=== PATIENT | male | born 1950 | race Caucasian/White ===

== ENCOUNTER 2017-09-23 05:35 | Outpatient (CLI) | payer MEDICARE ==
[~2017-09-23] VITALS: Ht 170.2 cm; Wt 56.7 kg
[~2017-09-23 05:35] MED LIST: ASPI1TAB PO; CIPR500T78 PO; HYDR-3454 PO; METR500T PO; POLY17PO23 PO; TRAM-21 PO
== END 2017-09-23 11:56 ==
LOC: PREOP 05:35
PROVIDERS: ATTEND Surgery
DX: Z01.818 Encounter for other preprocedural examination (principal); K40.90 Unilateral inguinal hernia, without obstruction or gangrene, not specified as recurrent

== ENCOUNTER 2017-09-30 06:58 | Day surgery (SDC) | payer MEDICARE ==
[~2017-09-30] VITALS: Ht 170.2 cm; Wt 56.7 kg
[2017-09-30 07:10] VITALS: BP 147/82
[2017-09-30] MEDS ORDERED: ceFAZolin 1 GM/NS 50 ML IVPB IV ONE ×2 (07:15)
[2017-09-30] MEDS ORDERED: BUP/EPI 0.5% 1:200,000 (SENSORCAINE) 30 ML VIAL ONE (07:18)
[2017-09-30] MEDS: LACTATED RINGERS 1,000 ML IV PRN ×2 (07:25→09:22)
[2017-09-30 07:33] LABS: BASOPHILS # (AUTO) 0.1 10^3/uL (0.0-0.1); BASOPHILS % (AUTO) 1 % (0-10); EOSINOPHILS # (AUTO) 0.1 10^3/uL (0.0-0.3); EOSINOPHILS % (AUTO) 1 % (0-10); HEMATOCRIT 39 % (40-54); HEMOGLOBIN 13.9 G/DL (13.3-17.7); LYMPHOCYTES # (AUTO) 1.5 X 10^3 (1.0-4.0); LYMPHOCYTES % (AUTO) 17 % (12-44); MEAN CORPUSCULAR HEMOGLOBIN 33 PG (25-34); MEAN CORPUSCULAR HGB CONC 35 G/DL (32-36); MEAN CORPUSCULAR VOLUME 93 FL (80-99); MEAN PLATELET VOLUME 9.4 FL (7.4-10.4); MONOCYTES # (AUTO) 0.8 X 10^3 (0.0-1.0); MONOCYTES % (AUTO) 9 % (0-12); NEUTROPHILS # (AUTO) 6.4 X 10^3 (1.8-7.8); NEUTROPHILS % (AUTO) 73 % (42-75); PLATELET COUNT 262 10^3/uL (130-400); RED BLOOD COUNT 4.22 10^6/uL (4.35-5.85); RED CELL DISTRIBUTION WIDTH 13.4 % (10.0-14.5); WHITE BLOOD COUNT 8.8 10^3/uL (4.3-11.0)
[2017-09-30] MEDS ORDERED: ceFAZolin INJECTION 1,000 MG in NS (IVPB) 50 ML IV ONE (07:45)
[2017-09-30] MEDS ORDERED: ONDANSETRON 4 MG/2 ML (SDV) Z0FRAN IVP PRN ×2 (08:00→10:15)
[2017-09-30] MEDS ORDERED: ACETAMINOPHEN 325 MG TABLET/CAPLET (TYLENOL) PO PRN (08:00)
[2017-09-30] MEDS ORDERED: HYDROcodone/APAP 5 MG/325 MG (LORTAB) TAB PO ONE (08:00)
[2017-09-30] MEDS ORDERED: morphine INJ 10 MG/ML 1ML (SYR OR VIAL) IVP PRN (08:00)
--- NOTE | 2017-09-30 08:00 | Progress Note-Pre Operative ---
Pre-Operative Progress Note H&P Reviewed The H&P was reviewed, patient examined and no changes noted. Date Seen by Provider: Sep 30, 2017 Time Seen by Provider: 07:45 Date H&P Reviewed: Sep 30, 2017 Time H&P Reviewed: 07:50 Pre-Operative Diagnosis: Symptomatic right inguinal hernia ANDRE HART APRN Sep 30, 2017 8:00 am
[2017-09-30] MEDS ORDERED: LIDOCAINE PF 2% 5 ML (XYLOCAINE) VIAL ONE (08:25)
[2017-09-30] MEDS ORDERED: proPOfol 200 MG/20 ML (DIPRIVAN) VIAL IV ONE (08:25)
[2017-09-30] MEDS ORDERED: fentaNYL INJECTION 100 MCG/2 ML AMP ONE (08:25)
[2017-09-30] MEDS ORDERED: GLYCOPYRROLATE 0.2 MG/ML (ROBINUL) 2 ML VIAL ONE (08:25)
[2017-09-30] MEDS ORDERED: MIDAZOLAM 2 MG/2 ML (VERSED) VIAL ONE (08:25)
[2017-09-30] MEDS ORDERED: NEOSTIGMINE (BLOXIVERZ ) 1 MG/1ML 10 ML VIAL ONE (08:25)
[2017-09-30] MEDS ORDERED: ONDANSETRON 4 MG/2 ML (SDV) Z0FRAN ONE (08:25)
[2017-09-30] MEDS ORDERED: SEVOFLURANE (ULTANE) 15 ML INHAL SOLN ONE (08:25)
[2017-09-30] MEDS ORDERED: DEXAMETHASONE 10 MG/ML (DECADRON) 1 ML VIAL ONE (08:25)
[2017-09-30] MEDS ORDERED: ROCURONIUM 50 MG/5 ML (ZEMURON) VIAL IV ONE (08:25)
[2017-09-30] MEDS ORDERED: PHENYLEPHRINE 100 MCG/ML 10 ML (ANESTHESIA) SYR ONE (09:23)
--- NOTE | 2017-09-30 09:58 | Progress Note-Post Operative ---
Post-Operative Progess Note Surgeon (s)/Supervisor Mirror Fabrication (s) Surgeon MAICOL DAIGLE MD Supervisor [employer]: none Pre-Operative Diagnosis Symptomatic right inguinal hernia Post-Operative Diagnosis symptomatic right direct inguinal hernia. Procedure & Operative Findings Date of Procedure 09/30/17 Procedure Performed/Findings laparoscopic right inguinal hernia repair with mesh. Anesthesia Type GET Estimated Blood Loss Estimated blood loss (mL): minimal Specimens/Packing Specimens Removed none MAICOL DAIGLE MD Sep 30, 2017 9:58 am
[2017-09-30] MEDS ORDERED: HYDR-34 PO (09:59)
--- NOTE | 2017-09-30 10:00 | Discharge Inst-Surgical ---
D/C Lap Instructions-OXANA New, Converted, or Re-Newed RX: RX on Chart Follow Up Appt in 2 weeks Activity as tolerated No driving for 24 hours No driving while on pain medications Incentive Spirometry use every 2 hours while awake Regular Diet Symptoms to Report: Fever over 101 degree F, Nausea/Vomiting Infection Signs and Symptoms to report: Increased redness, Foul odor of wound, Increased drainage Bathing instructions: May shower Operative Area Clean/Dry; Keep incision clean/dry If any problems/questions: Contact your physician or go to Emergency Room MAICOL DAIGLE MD Sep 30, 2017 10:00 am
[2017-09-30] MEDS ORDERED: HYDROmorphone (DILAUDID) 2 MG/ML VIAL IVP PRN (10:15)
[2017-09-30] MEDS: morphine INJ 10 MG/ML 1ML (SYR OR VIAL) IVP PRN ×3 (10:20→10:30)
[2017-09-30 11:00] VITALS: BP 131/74
[2017-09-30 11:30] VITALS: BP 134/74
[2017-09-30 12:00] VITALS: BP 131/72
[2017-09-30 12:25] VITALS: BP 131/72
--- NOTE | 2017-09-30 12:58 | OPERATIVE REPORT ---
DATE OF SERVICE: 09/30/2017 ATTENDING PRIMARY CARE PHYSICIAN: Herbert Jean MD. PREOPERATIVE DIAGNOSIS: Symptomatic reducible right inguinal hernia. POSTOPERATIVE DIAGNOSIS: Symptomatic reducible direct inguinal hernia. PROCEDURE: Laparoscopic right inguinal hernia repair with mesh. SURGEON: Maicol Daigle MD. NURSE OBGYN: Oswaldo Yanez APRN. ANESTHESIA: General endotracheal. ESTIMATED BLOOD LOSS: Minimal. FINDINGS: Reducible direct right inguinal hernia with nothing within the hernia sac. There was no left inguinal hernia component. DISPOSITION: The patient tolerated the procedure well. INDICATIONS: The patient is a 67-year-old male who reports that he was doing an activity and felt a bulge in the right inguinal region. Over time, this grew larger in size and became more painful. He was seen in the office and upon examination, he was found to have a right inguinal hernia, which was reducible; however, tender to palpation. DESCRIPTION OF PROCEDURE: The patient was brought to the operating room, laid supine on the table. After adequate IV pain and sedative medications and general endotracheal intubation, the abdomen was prepped and draped in standard surgical fashion. A 0.5% Marcaine with epinephrine was then used to anesthetize the overlying skin in the infraumbilical rim and a small transverse skin incision made using a 15 blade. A towel clamp was then used to retract the abdominal wall anteriorly and a Veress needle inserted with a low opening pressure of 0 mmHg and the abdomen was insufflated to 15 mmHg pressure. The Veress needle removed. A 10 mm Xcel trocar placed followed by a 10 mm 45-degree angle laparoscope visualizing the peritoneal cavity. A 4-quadrant abdominal exploration was performed. Right direct inguinal hernia was identified with nothing within the hernia sac. There was no left inguinal hernia component. It was visualized that the colon, small bowel and omentum were normal. Under direct visualization, we then proceeded to place bilateral 5 mm ports after the skin and peritoneal lining were anesthetized, a transverse skin incision made using a 15 blade. The patient was then placed in Trendelenburg position. The peritoneal lining was then opened, starting laterally towards the conjoint tendon and inguinal ligament. We then proceeded medially identifying Ty's ligament. We then proceeded with inferior dissection including the hernia sac using blunt dissection as well as Sonicision with visualization of good hemostasis. The cord and its contents were identified and spared throughout the process. A medium-sized Bard 3DMax polypropylene mesh was then placed through the 10 mm port site. The mesh was then tacked to Ty's ligament medially and to the conjoint tendon and inguinal ligament laterally. The peritoneal lining was then placed back was then placed over the mesh and a few tacks placed to hold this in place. Good hemostasis was observed. The 10 mm port site fascia and peritoneum were then closed under direct visualization using a León-Zahira device and an 0 Vicryl suture. The abdomen was desufflated and remaining ports removed. All skin incisions were closed using 4-0 Monocryl running subcuticular sutures. Wounds were then cleaned and covered with Dermabond. The patient tolerated the procedure well. We will start IV normal pain medications as well as a clear liquid diet. Once he is tolerating clears and has good pain control with oral pain medications and ambulating well, we will discharge him home. He is instructed to do no heavy lifting or exertion for the next 6 weeks. Job ID: [id number] DocumentID: [id number] Dictated Date: 09/30/2017 10:07:06 Mandolin Repairer Date: 09/30/2017 12:57:49 Dictated By: MAICOL DAIGLE MD
== END 2017-09-30 12:10 | disposition home or self-care (01) ==
LOC: SDC 06:58
PROVIDERS: ATTEND Surgery
DX: K40.90 Unilateral inguinal hernia, without obstruction or gangrene, not specified as recurrent (principal); F17.210 Nicotine dependence, cigarettes, uncomplicated
CPT/HCPCS: 36415; 85025; 87081; 94664

== ENCOUNTER → 2018-06-08 | Outpatient (CLI) | payer MEDICARE ==
[~2018-06-08] MED LIST changes: +HYDR-34 PO; +IOHEXOL 350 MG/ML 100 ML (OMNIPAQUE 350) VIAL IV ONE; +NS 250 ML (IVPB) BAG IV ONE
--- NOTE | 2018-06-08 09:36 | Diagnostic Imaging Report ---
PROCEDURE: CT abdomen and pelvis with contrast. TECHNIQUE: Multiple contiguous axial images were obtained through the abdomen and pelvis after administration of intravenous contrast. INDICATION: Severe abdominal pain with emesis and constipation. COMPARISON: 04/27/2014. FINDINGS: The calcified granuloma is stable in the right lung base as is the small enhancing focus within the dome of the right lobe of the liver. Otherwise, there is mild low-density throughout the liver indicating steatosis. The gallbladder is surgically absent. No pancreatic or splenic lesion is identified apart from calcified granulomas. Note is made of dense atherosclerotic calcification involving the origins of the celiac trunk and superior mesenteric artery with apparent high-grade stenosis at the origin of the celiac trunk. There is opacification of celiac branch vessels which could be related to collateral flow in part. There is also atherosclerotic calcification at the origin of the renal arteries with normal-appearing renal perfusion. No free fluid is seen within the abdomen or pelvis. The partially opacified urinary bladder is unremarkable. There is fluid distention of small bowel loops in the lower abdomen and pelvis; however, no hernia or obstruction is identified. There is no evidence of focal inflammation or organized fluid collection. The subcutaneous nodule in the right pelvic region is unchanged. IMPRESSION: Overall, the findings are similar when compared to the previous study. 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 Contrast flow into the remainder of the celiac branches may be through the stenosis or related to collateral flow. Otherwise, no acute abnormality is identified. Dictated by: Dictated on workstation # [id number]
== END ==
LOC: RAD 08:38
PROVIDERS: ATTEND Family Medicine
DX: I77.4 Celiac artery compression syndrome (principal); K59.00 Constipation, unspecified
CPT/HCPCS: 74177

== ENCOUNTER 2018-12-28 06:30 | Outpatient (CLI) | payer MEDICARE ==
[~2018-12-28] VITALS: Ht 170.2 cm; Wt 56.7 kg
[~2018-12-28 06:30] MED LIST changes: -IOHEXOL 350 MG/ML 100 ML (OMNIPAQUE 350) VIAL IV ONE; -NS 250 ML (IVPB) BAG IV ONE
[2018-12-28] MEDS ORDERED: ASPI-992 PO (12:40)
== END 2018-12-28 12:43 | disposition home or self-care (01) ==
LOC: PREOP 06:30
PROVIDERS: ATTEND Surgery
DX: Z01.818 Encounter for other preprocedural examination (principal)

== ENCOUNTER 2019-01-04 11:23 | Day surgery (SDC) | payer MEDICARE ==
[~2019-01-04] VITALS: Ht 170.2 cm; Wt 56.7 kg
[~2019-01-04 11:23] MED LIST changes: +ASPI-992 PO
[2019-01-04] MEDS ORDERED: NS IV 500 ML 500 ML IV PRN (11:35)
[2019-01-04] MEDS ORDERED: NS IV 500 ML 500 ML ONE (11:35)
--- OUTSIDE RECORDS SUMMARY | 2019-01-04 11:35 | XMS REPORT | Continuity of Care Document ---
Author Organization Unknown Address Unknown Allergies Active Description Code Type Severity Reaction Onset Reported/Identified Relationship to Patient Clinical Status Yes NO KNOWN DRUG ALLERGIES UNKNOWN NO KNOWN DRUG ALLERG Yes SEAFOOD MODERATE DERMATOLOGICAL - CHRISTY Yes No Known Drug Allergies [id number] Drug Allergy Unknown N/A 04/27/2014 Yes peanut [id number] Drug Allergy Unknown N/A 12/28/2018 Yes shellfish derived [id number] Drug Allergy Unknown N/A 12/28/2018 Medications There is no data. Problems Date Dx Coded Attending Type Code Diagnosis Diagnosed By 07/26/2014 BRYCE FAUKLNER, EMELIA Hager Ot 293.0 08/09/2014 NEHAL FAULKNER, THERESE Waldron Ot 455.0 INT HEMORRHOID W/O COMPL 08/09/2014 NEHAL FAULKNER, THERESE Waldron Ot 455.3 EXT HEMORRHOID W/O COMPL 08/09/2014 NEHAL FAULKNER, THERESE Waldron Ot 531.70 CHR STOMACH ULCER NOS 08/09/2014 NEHAL FAULKNER, THERESE Waldron Ot 535.50 UNSP GASTRITIS GASTRODUODENITIS W/O ME 08/09/2014 NEHAL FAULKNER, THERESE Waldron Ot 553.3 DIAPHRAGMATIC HERNIA 08/09/2014 NEHAL FAULKNER, THERESE Waldron Ot 562.10 DIVERTICULOSIS COLON (W/O MENT OF HEMORR 08/13/2014 NEHAL FAULKNER, THERESE Waldron Ot 575.11 CHRONIC CHOLECYSTITIS 08/13/2014 NEHAL FAULKNER, THERESE Waldron Ot 575.8 08/30/2014 NEHAL FAULKNER, THERESE Waldron Ot 575.8 08/30/2014 NEHAL FAULKNER, THERESE Waldron Ot V72.63 08/30/2014 NEHAL FAULKNER, THERESE Waldron Ot V74.8 02/16/2015 NEHAL FAULKNER, THERESE Waldron Ot 575.8 02/16/2015 NEHAL FAULKNER, THERESE Waldron Ot V72.63 02/16/2015 NEHAL FAULKNER, THERESE Waldron Ot V74.8 02/14/2016 NEHAL FAULKNER, THERESE Waldron Ot V72.84 EXAM PRE-OPERATIVE NOS 02/14/2016 NEHAL FAULKNER, THERESE Waldron Ot 575.8 DIS OF GALLBLADDER NEC 02/14/2016 NEHAL FAULKNER, THERESE Waldron Ot V72.63 PRE-PROCEDURAL LABORATORY EXAMINATION 02/14/2016 NEHAL FAULKNER, THERESE Waldron Ot V74.8 SCREEN-BACTERIAL DIS NEC 02/17/2016 BRYCE FAULKNER, EMELIA D Ot M26.03 MANDIBULAR HYPERPLASIA 02/18/2016 BRYCE FAULKNER, EMELIA D Ot M26.03 MANDIBULAR HYPERPLASIA 02/20/2016 BRYCE FAULKNER, EMELIA D Ot M26.03 MANDIBULAR HYPERPLASIA 03/05/2016 BRYCE FAULKNER, EMELIA D Ot M26.03 MANDIBULAR HYPERPLASIA 03/12/2016 BRYCE FAULKNER, EMELIA D Ot M26.03 MANDIBULAR HYPERPLASIA 09/23/2017 OXANA FAULKNER, MAICOL Ot K40.90 UNIL INGUINAL HERNIA, W/O OBST OR GANGR, 09/23/2017 OXANA FAULKNER, MAICOL Ot Z01.818 ENCOUNTER FOR OTHER PREPROCEDURAL EXAMIN 09/24/2017 MAICOL DAIGLE MD Ot K40.90 UNIL INGUINAL HERNIA, W/O OBST OR GANGR, 09/24/2017 OXANA FAULKNER, MAICOL Ot Z01.818 ENCOUNTER FOR OTHER PREPROCEDURAL EXAMIN 09/30/2017 NEHAL FAULKNER, THERESE Waldron Ot V72.84 EXAM PRE-OPERATIVE NOS 09/30/2017 NEHAL FAULKNER, THERESE Waldron Ot 575.8 DIS OF GALLBLADDER NEC 09/30/2017 NEHAL FAULKNER, THERESE Waldron Ot V72.63 PRE-PROCEDURAL LABORATORY EXAMINATION 09/30/2017 NEHAL FAULKNER, THERESE Waldron Ot V74.8 SCREEN-BACTERIAL DIS NEC 09/30/2017 BRYCE FAULKNER, EMELIA Hager Ot M26.03 MANDIBULAR HYPERPLASIA 09/30/2017 BRYCE FAULKNER, EMELIA Hager Ot M26.03 MANDIBULAR HYPERPLASIA 09/30/2017 OXANA FAULKNRE, MAICOL Ot F17.210 NICOTINE DEPENDENCE, CIGARETTES, UNCOMPL 09/30/2017 MAICOL DAIGLE MD Ot K40.90 UNIL INGUINAL HERNIA, W/O OBST OR GANGR, 10/01/2017 MAICOL DAIGLE MD Ot F17.210 NICOTINE DEPENDENCE, CIGARETTES, UNCOMPL 10/01/2017 MAICOL DAIGLE MD Ot K40.90 UNIL INGUINAL HERNIA, W/O OBST OR GANGR, 10/01/2017 MAICOL DAIGLE MD Ot F17.210 NICOTINE DEPENDENCE, CIGARETTES, UNCOMPL 10/01/2017 MAICOL DAIGLE MD, Ot K40.90 UNIL INGUINAL HERNIA, W/O OBST OR GANGR, 06/08/2018 THERESE CALVERT MD Ot V72.84 EXAM PRE-OPERATIVE NOS 06/08/2018 NEHAL FAULKNER, THERESE Waldron Ot 575.8 DIS OF GALLBLADDER NEC 06/08/2018 THERESE CALVERT MD Ot V72.63 PRE-PROCEDURAL LABORATORY EXAMINATION 06/08/2018 THERESE CALVERT MD Ot V74.8 SCREEN-BACTERIAL DIS NEC 06/08/2018 BRYCE FAULKNER, EMELIA Hager Ot M26.03 MANDIBULAR HYPERPLASIA 06/08/2018 EMELIA WU MD Ot M26.03 MANDIBULAR HYPERPLASIA 06/16/2018 MEÑO HOBBS MD Ot 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 Results Test Result Range Methicillin resistant Staphylococcus aureus (MRSA) screening culture - 07:15 Methicillin resistant Staphylococcus aureus (MRSA) screening culture NEG NRG Complete blood count (CBC) with automated white blood cell (WBC) differential - 09/30/17 07:25 Blood leukocytes automated count (number/volume) 8.8 10*3/uL 4.3-11.0 Blood erythrocytes automated count (number/volume) 4.22 10*6/uL 4.35-5.85 Venous blood hemoglobin measurement (mass/volume) 13.9 g/dL 13.3-17.7 Blood hematocrit (volume fraction) 39 % 40-54 Automated erythrocyte mean corpuscular volume 93 [foz_us] 80-99 Automated erythrocyte mean corpuscular hemoglobin (mass per erythrocyte) 33 pg 25-34 Automated erythrocyte mean corpuscular hemoglobin concentration measurement ( mass/volume) 35 g/dL 32-36 Automated erythrocyte distribution width ratio 13.4 % 10.0-14.5 Automated blood platelet count (count/volume) 262 10*3/uL 130-400 Automated blood platelet mean volume measurement 9.4 [foz_us] 7.4-10.4 Automated blood neutrophils/100 leukocytes 73 % 42-75 Automated blood lymphocytes/100 leukocytes 17 % 12-44 Blood monocytes/100 leukocytes 9 % 0-12 Automated blood eosinophils/100 leukocytes 1 % 0-10 Automated blood basophils/100 leukocytes 1 % 0-10 Blood neutrophils automated count (number/volume) 6.4 10*3 1.8-7.8 Blood lymphocytes automated count (number/volume) 1.5 10*3 1.0-4.0 Blood monocytes automated count (number/volume) 0.8 10*3 0.0-1.0 Automated eosinophil count 0.1 10*3/uL 0.0-0.3 Automated blood basophil count (count/volume) 0.1 10*3/uL 0.0-0.1 Lipid Panel - 04/13/18 07:35 C/HDL 2.6 3.7-6.7 Cholesterol 156 mg/dL 100-240 HDL 60 mg/dL 30-85 LDL-Calculated 85 mg/dL 0-100 Trig 53 mg/dL 35-160 VLDL 11 mg/dL 0-42 Comprehensive Metabolic Panel - 06/07/18 10:34 Albumin 4.2 g/dL 3.6-5.1 ALP 74 U/L 35-130 ALT 11 U/L 6-45 Anion Gap 18 6-14 AST 15 U/L 2-40 BUN 8 mg/dL 5-25 Calcium 9.8 mg/dL 8.3-10.4 Chloride 99 mmol/L 95-114 CO2 24 mEq/L 22-33 Creat 0.75 mg/dL 0.50-1.50 eGFR 103 mL/min/1.73m2 >59 Globulin 4.0 g/dL 2.3-3.5 Glucose 106 mg/dL 70-110 Osmo 280 280-295 Potassium 4.5 mmol/L 3.5-5.3 Sodium 136 mmol/L 134-148 TBil 0.4 mg/dL 0.2-1.2 TP 8.2 g/dL 6.0-8.3 BMP - 06/27/18 13:03 Anion Gap 19 6-14 BUN 14 mg/dL 5-25 Calcium 9.9 mg/dL 8.3-10.4 Chloride 100 mmol/L 95-114 CO2 23 mEq/L 22-33 Creat 0.89 mg/dL 0.50-1.50 eGFR 85 mL/min/1.73m2 >59 Glucose 97 mg/dL 70-110 Osmo 286 280-295 Potassium 4.3 mmol/L 3.5-5.3 Sodium 138 mmol/L 134-148 Encounters ACCT No. Visit Date/Time Discharge Status Pt. Type Provider Facility Loc./Unit Complaint [id number] 12/28/2018 06:30:00 12/28/2018 12:43:00 DIS Outpatient MAICOL DAIGLE MD [facility] PREOP COLONOSCOPY/EGD [id number] 06/08/2018 08:38:00 06/08/2018 23:59:59 CLS Outpatient MEÑO HOBBS MD [facility] RAD ABD PAIN [id number] 09/30/2017 06:58:00 09/30/2017 12:10:00 DIS Outpatient MAICOL DAIGLE MD [facility] RIGHT INGUINAL HERNIA [id number] 09/23/2017 05:35:00 09/23/2017 11:56:00 DIS Outpatient MAICOL DAIGLE MD [facility] PREOP RIGHT INGUINAL HERNIA [id number] 02/19/2016 14:27:00 02/19/2016 23:59:59 CLS Outpatient EMELIA WU MD [facility] RAD DISORDER OF JAW [id number] 02/14/2016 10:55:00 02/14/2016 23:59:59 CLS Outpatient EMELIA WU MD [facility] RAD MANDIBULAR HYPERPLASIA [id number] 08/13/2014 12:19:00 08/13/2014 17:10:00 DIS Outpatient THERESE CALVERT MD [facility] BILIARY DYSKINESIA [id number] 08/09/2014 09:42:00 08/09/2014 23:59:59 CLS Outpatient THERESE CALVERT MD [facility] PREOP BILARY DYSKINEA [id number] 08/09/2014 09:49:00 08/09/2014 12:35:00 DIS Outpatient NEHAL FAULKNER, THERESE Waldron [facility] WEIGHT LOSS CHANGE IN BOWEL HABITS [id number] 08/08/2014 06:22:00 08/08/2014 23:59:59 CLS Outpatient THERESE CALVERT MD [facility] PREOP CHANGE IN BOWEL HABITS, WEIGHT LOSS [id number] 06/15/2014 14:48:00 06/15/2014 23:59:59 CLS Outpatient BRYCE FAULKNER, EMELIA Hager [facility] [id number] 06/08/2014 09:15:00 06/08/2014 23:59:59 CLS Outpatient [id number] 04/27/2014 11:36:00 04/27/2014 15:45:00 DIS Emergency [id number] 01/04/2019 10:15:00 PEN Preadmit OXANA FAULKNER, MAICOL [facility] ENDO CHANGE IN BOWEL HABIT/NAUSEA/ABD PAIN [id number] 06/27/2018 12:57:00 06/27/2018 23:59:00 DIS Outpatient KUSH AMATO [id number] 2018 10:29:00 2018 23:59:00 DIS Outpatient MEÑO HOBBS [id number] 04/13/2018 07:17:00 04/13/2018 23:59:00 DIS Outpatient MEÑO HOBBS
[2019-01-04 11:45] VITALS: BP 120/67
[2019-01-04] MEDS ORDERED: fentaNYL INJECTION 100 MCG/2 ML AMP IVP ONE (11:45)
[2019-01-04] MEDS ORDERED: LIDOCAINE JELLY 2% 6 ML SYRINGE MM PRN (11:45)
[2019-01-04] MEDS ORDERED: MIDAZOLAM 2 MG/2 ML (VERSED) VIAL IVP ONE (11:45)
[2019-01-04] MEDS ORDERED: HURRICAINE EXT TUBE (BENZOCAINE) XX PRN (11:45)
[2019-01-04] MEDS ORDERED: MIDAZOLAM 2 MG/2 ML (VERSED) VIAL ONE ×5 (12:10)
[2019-01-04] MEDS ORDERED: fentaNYL INJECTION 100 MCG/2 ML AMP ONE (12:10)
[2019-01-04] MEDS ORDERED: LIDOCAINE JELLY 2% 6 ML SYRINGE ONE (12:11)
[2019-01-04] MEDS ORDERED: HURRICAINE EXT TUBE (BENZOCAINE) ONE (12:11)
--- NOTE | 2019-01-04 12:39 | Conscious Sedation/ASA ---
Conscious Sedation Pre-Proced Time 11:00 ASA Score 2 For ASA 3 and 4: Consider anesthesia and medical clearance. Also, for patients with a history of failed moderate sedation consider anesthesia. Airway Lungs Heart ASA score ASA 1: a normal healthy patient ASA 2: a patient with a mild systemic disease (mid diabetes, controlled hypertension, obesity ASA 3: a patient with a severe systemic disease that limits activity (angina , COPD, prior Myocardial infarction) ASA 4: a patient with an incapacitating disease that is a constant threat to life (CHF, renal failure) ASA 5: a moribund patient not expected to survive 24 hrs. (ruptured aneurysm) ASA 6: a declared brain- patient whose organs are being harvested. For emergent operations, add the letter E after the classification Mallampati Classification Grade 2 Sedation Plan Analgesia, Amnesia, Plan communicated to team members, Discussed options with patient/fam, Discussed risks with patient/fam The patient is an appropriate candidate to undergo the planned procedure, sedation, and anesthesia. The patient immediately re-assessed prior to indication. MAICOL DAIGLE MD January 04, 2019 12:39
--- NOTE | 2019-01-04 12:40 | Progress Note-Pre Operative ---
Pre-Operative Progress Note H&P Reviewed The H&P was reviewed, patient examined and no changes noted. Date Seen by Provider: January 04, 2019 Time Seen by Provider: 11:00 Date H&P Reviewed: January 04, 2019 Time H&P Reviewed: 11:00 Pre-Operative Diagnosis: nausea/vomiting, change bowel habits MAICOL DAIGLE MD January 04, 2019 12:40
[2019-01-04] MEDS ORDERED: PANT40TA2 PO (12:41)
--- NOTE | 2019-01-04 12:42 | Discharge Inst-Surgical ---
D/C Lap Instructions-KIDO New, Converted, or Re-Newed RX: RX on Chart Follow Up Activity as tolerated High Fiber Diet 25g or more per day Avoid Alcohol, Caffeine, Spicy [place] and Acid foods. Drink 64 fluid oz or more of fluids per day. Symptoms to Report: Fever over 101 degree F, Nausea/Vomiting If any problems/questions: Contact your physician or go to Emergency Room MAICOL DAIGLE MD January 04, 2019 12:42
[2019-01-04] MEDS ORDERED: HYDROcodone/APAP 5 MG/325 MG (LORTAB) TAB PO PRN (12:45)
[2019-01-04] MEDS ORDERED: ACETAMINOPHEN 325 MG TABLET PO PRN (12:45)
[2019-01-04] MEDS ORDERED: ONDANSETRON 4 MG/2 ML (SDV) Z0FRAN IV PRN (12:45)
[2019-01-04] MEDS ORDERED: morphine INJ 10 MG/ML 1ML (SYR OR VIAL) IV PRN (12:45)
[2019-01-04 13:55] VITALS: BP 150/80
[2019-01-04 14:25] VITALS: BP 131/75
[2019-01-04 14:45] VITALS: BP 131/75
--- NOTE | 2019-01-04 14:58 | Progress Note-Post Operative ---
Post-Operative Progess Note Surgeon (s)/Technical Administrative Assistant (s) Surgeon MAICOL DAIGLE MD Technical Administrative Assistant: none Pre-Operative Diagnosis nausea/vomiting, change bowel habits Post-Operative Diagnosis reflux esophagitis(stage 2), moderate HH(2.5cm), moderate gastritis. chronic stage 2 ext and int hemorrhoids, moderate sigmoid and descending diverticulosis. Procedure & Operative Findings Date of Procedure 01/04/19 Procedure Performed/Findings EGD with bx. Colonoscopy. Anesthesia Type cs Estimated Blood Loss Estimated blood loss (mL): minimal Specimens/Packing Specimens Removed ge jxn, antrum MAICOL DAIGLE MD January 04, 2019 14:58
--- NOTE | 2019-01-04 16:52 | OPERATIVE REPORT ---
DATE OF SERVICE: 01/04/2019 ATTENDING PRIMARY CARE PHYSICIAN: Dr. Kumar Bingham. PREOPERATIVE DIAGNOSES: Gastroesophageal reflux disease, nausea, change in bowel habits. POSTOPERATIVE DIAGNOSES: Reflux esophagitis stage II, moderate size hiatal hernia approximately 2.5 cm in size, moderate severity gastritis. Mild chronic stage II external and internal hemorrhoids, moderate sigmoid and descending colonic diverticulosis. PROCEDURES: EGD with biopsy and colonoscopy. SURGEON: Maicol Daigle MD ANESTHESIA: Conscious sedation. ESTIMATED BLOOD LOSS: Minimal. FINDINGS: Reflux esophagitis stage II, moderate size hiatal hernia approximately 2.5 cm in size, moderate severity gastritis. Mild chronic stage II external and internal hemorrhoids, moderate sigmoid and descending colonic diverticulosis. DISPOSITION: The patient tolerated the procedure well. INDICATIONS: The patient is a 68-year-old male known to us. We have seen him in 09/2017 for right inguinal hernia and underwent a laparoscopic right inguinal hernia repair. He was seen in the office with a two month history of left upper quadrant crampy abdominal pain as well as associated nausea, vomiting and worsening reflux. He also reports that he has had worsening constipation and only has a bowel movement every four to five days. He does not report any red blood per rectum nor any dark tarry stools. He also does not report any hematemesis, no coffee ground emesis. He does have a history of peripheral vascular disease and underwent an abdominal aortic stent placement in 06/2018. DESCRIPTION OF PROCEDURE: The patient was brought to the endoscopy suite, laid in the left lateral decubitus position. After adequate IV pain and sedative medications and conscious sedation anesthesia, the mouthpiece was applied. The endoscope was placed in the mouth, visualizing the pharynx and hypopharyngeal region. Vocal cords, epiglottis and vallecula were identified and appeared to be normal. The endoscope was then gently intubated. The esophageal opening and esophagus was insufflated. The endoscope was then advanced to the first, second and third portion of the esophagus. At the level of the GE junction, a reflux esophagitis stage II identified. There were no ulcers or strictures identified in this region; however, this was slightly intrathoracic consistent with a hiatal hernia. The endoscope was then advanced in the stomach and the endoscope retroflexed, visualizing a hiatal hernia, which appeared to be more of a type 1 sliding hiatal hernia; however, moderate in size, approximately 2.5 cm and may indicate the discomfort with his eating as well as the nausea and regurgitation. There was moderate severity gastritis; however, no formal polyps or any ulcerations. A biopsy was taken of the antrum to rule out H. pylori with visualization of good hemostasis. The endoscope was then advanced to the pylorus and the first and second portion of the duodenum, which appeared normal with no distal obstructions. The endoscope was then slowly withdrawn while taking a second look and suctioning of residual air with no additional findings. The patient tolerated this portion of procedure well. We will start him on the necessary lifestyle and diet accommodation including small and more frequent meals, avoidance of eating at night as well as head elevation while lying supine. He also needs to proceed with smoking cessation as well as reduction and cessation of caffeinated beverages, spicy, greasy and acidic foods. Due to his gastritis and his reflux esophagitis as well as a hiatal hernia, we will start him on Protonix 40 mg daily. If he continues to have reflux and regurgitation despite maximal medical therapy or develops dysphagia, we will have him followup and we will discuss the possibility of a hiatal hernia repair as well as an antireflux procedure. However, before proceeding with this, we will want him to stop smoking and we would proceed with an esophageal manometry study to rule out a gastrointestinal motility order first. Under the same anesthesia, we then proceeded with the colonoscopy portion of the procedure. Mild chronic stage II external and internal hemorrhoids were identified, which were not actively edematous nor inflamed and no bleeding. Normal sphincter tone was felt and there were no palpable masses. Prostate gland was palpable and appeared normal. The endoscope was then intubated in the anus and rectum gently split. The endoscope was then advanced to the valves of Murray of the rectum with no polyps or any neoplasms identified. We then proceeded to the sigmoid colon where a moderate sigmoid diverticulosis was identified. This diverticulosis did extend to the descending colon as well. There were no mucosal inflammatory changes to indicate any active diverticulitis. The endoscope was then advanced to the remainder of the descending, through the transverse, ascending colon to the cecum. These segments were normal. There were no polyps and/or any neoplasms identified throughout the colon or rectum. The endoscope was then slowly withdrawn with taking a second look and suctioning of residual air with no additional findings. The patient tolerated the procedure well. We will recommend a high fiber diet with at least 30 grams of fiber per day as well as significant amounts of water to promote soft stools on a daily basis. He does not have a family history of colon cancer. He may wait another 10 years; however, he does have significant diverticulosis and if this does progress or cause symptoms, he may need a colonoscopy sooner. Job ID: [id number] DocumentID: [id number] Dictated Date: 01/04/2019 13:52:07 Cold Press Operator Date: 01/04/2019 16:51:34 Dictated By: MAICOL DAIGLE MD
== END 2019-01-04 14:45 | disposition home or self-care (01) ==
LOC: ENDO 11:23
PROVIDERS: ATTEND Surgery
DX: K21.0 Gastro-esophageal reflux disease with esophagitis (principal); K44.9 Diaphragmatic hernia without obstruction or gangrene; K29.70 Gastritis, unspecified, without bleeding; K57.30 Diverticulosis of large intestine without perforation or abscess without bleeding; K64.1 Second degree hemorrhoids; K59.00 Constipation, unspecified; Z91.010 Allergy to peanuts; Z91.013 Allergy to seafood

== ENCOUNTER 2021-02-12 08:09 | Inpatient (IN) | payer MEDICARE ==
[~2021-02-12] VITALS: Ht 170 cm; Wt 66.7 kg
[~2021-02-12 08:09] MED LIST changes: +PANT40TA2 PO
[2021-02-12] MEDS ORDERED: diphenhydrAMINE 25 MG TAB (BENADRYL) PO PRN (09:00)
[2021-02-12] MEDS ORDERED: dilTIAZem DRIP PRE-MIX 125 ML IV SCH (09:00)
[2021-02-12] MEDS ORDERED: ALPRAZolam 0.25 MG (XANAX) TAB PO PRN (09:00)
[2021-02-12] MEDS ORDERED: HEParin 1000 UNIT/ML (10ML VIAL) FOR BOLUS IV SCH (09:00)
[2021-02-12] MEDS ORDERED: CALCIUM CARBONATE 500 MG (TUMS) TAB.CHEW PO PRN (09:00)
[2021-02-12] MEDS ORDERED: DOCUSATE SODIUM 100 MG (COLACE) CAP PO PRN (09:00)
[2021-02-12] MEDS ORDERED: MELATONIN 3 MG TABLET PO PRN (09:00)
[2021-02-12] MEDS ORDERED: ONDANSETRON 4 MG/2 ML (SDV) Z0FRAN IVP PRN (09:00)
[2021-02-12] MEDS ORDERED: LOPERAMIDE 2 MG (IMODIUM) TABLET PO PRN (09:00)
[2021-02-12] MEDS ORDERED: ACETAMINOPHEN 325 MG TABLET PO PRN (09:45)
--- NOTE | 2021-02-12 10:00 | Consultation-Cardiology ---
HPI-Cardiology Cardiology Consultation: Date of Consultation 02/12/21 Time Seen by a Provider: 09:30 Date of Admission 02-12-21 Attending Physician Tracy Ghotra DO Admitting Physician Kumar Bingham MD Consulting Physician Kwame Foster MD HPI: Chief Complaint: New onset a-fib with RVR Mr Hernandez is a 70 yr old male direct admitted to ICU 6 from [facility] with new onset a-fib with RVR. He reports since Wednesday he has had increasing chest heaviness describing it as a feeling "his chest was going to explode". He reports increasing SOB over the last few days. He reports a feeling of a rapid heart beat starting this morning. No c/o fever or chills. No c/o syncope or near syncope. He states he is feeling much better at this time. His family is at the bedside. Review of Systems-Cardiology Review of Systems Constitutional: No chills, No fever; malaise Eyes: As described under HPI Ears/Nose/Throat: No epistaxis, No recent hearing loss Respiratory: As described under HPI Cardiovascular: As described under HPI Gastrointestinal: No diarrhea; nausea; No vomiting Genitourinary: No dysuria, No hematuria Musculoskeletal: no symptoms reported Skin: No rash on exposed areas, No ulcerations on exposed areas Psychiatric/Neurological: No anxiety, No depression, No seizure, No focal weakness, No syncope Hematologic: No bleeding abnormalities QXL-Ukmyqv-Ljlofl Hx Patient Social History 2nd Hand Smoke Exposure: Yes Immunizations Up To Date Tetanus Booster (TDap): Unknown Past Medical History PMH As described under Assessment. Family Medical History Family Medical History: Reports father passed from [place] at age 65 Allergies and Home Medications Allergies Coded Allergies: peanut (Verified Allergy, Unknown, 12/28/18) shellfish derived (Verified Allergy, Unknown, 12/28/18) Home Medications Aspirin/Acetaminophen/Caffeine 1 Each Tablet, 1 EACH PO PRN, (Reported) Pantoprazole Sodium 40 Mg Tablet.dr, 40 MG PO DAILY Prescribed by: MAICOL DAIGLE on 01/04/19 1241 Physical Exam-Cardiology Physical Exam Vital Signs/I&O Capillary Refill : Constitutional: AAO x 3, well-developed, well-nourished HEENT: PERRL, hearing is well preserved, oral hygience is good Neck: No carotid bruit; carotid pulses are 2 + bilaterally Respiratory: No accessory muscle use, No respiratory distress; chest expansion is symmetric, chest is bilaterally symmetric, other (diminished air entry all sánchez; prolonged exp phase; barrel shaped chest) Cardiovascular: regular rate-rhythm; No JVD; S1 and S2 Gastrointestinal: soft, audible bowel sounds Extremities: no lower extremity edema bilateral Neurologic/Psychiatric: grossly intact (moves all extremities) Skin: No rash on exposed areas, No ulcerations on exposed areas Data Review Labs Lab from 02-12-21 [place] [facility] [place] Radiology CXR of 02-12-21 from [facility] reviewed ECG Impression ECG Initial ECG Impression: Atrial Fibrillation w/RVR (EKG from [facility] on 02-12-21) A/P-Cardiology Assessment/Admission Diagnosis New onset a-fib with RVR - first diagnosed on EKG of 02-12-2021 from [facility] - converted to SR with controlled rate Leukocytosis of undetermined etiology - management per medical services 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 Queen of [facility] CV services (possible stenting) Reports h/o bilat carotid arterial dz (pt reports L>R) for which he follows with Dr. Queen of [facility] services COPD - seen on CXR of 02-12-21 Tobaccoism 1 PPD - cessation advised H/O hiatal hernia Family h/o CAD (father passed from [place] age 65) Discussion and Recomendations New onset a-fib with RVR - has converted to SR - start Eliquis for stroke prophylaxis D/t reported h/o messenteric artery intervention, possible stenting, we are going to start ASA 81mg daily We are going to request records from [facility] Leukocytosis (seen on lab of 02-12-21 from [facility]) of undetermined etiology - management per medical services COPD - management per medical services Echocardiogram to eval function and structure Monitor lab closely Replace electrolytes as indicated Smoking cessation advised We have spoken with Dr. Ghotra of medical services regarding plan of care We would like to thank her for this consult Further recs will be based on his hospital course FREDI BOWERS Feb 12, 2021 10:00
[2021-02-12] MEDS: NS IV 1000 ML 1,000 ML IV SCH ×2 (10:05→16:33)
[2021-02-12] MEDS: SENNA W/DOCUSATE (SENOKOT S) TABLET PO SCH ×2 (10:05→20:05)
--- NOTE | 2021-02-12 10:11 | History & Physical ---
History of Present Illness HPI/Chief Complaint CC: New onset atrial fibrillation with rapid ventricular response with severe hypotension HPI: This is a 70yoWM clinic pt of Dr. Kumar Bingham, who I moved over to [facility] from [facility] after urgent consultation by SENIOR SALES ASSOCIATE due to new onset atrial fibrillation with rapid ventricular response of 190, was significant hypotension of systolic of 60. Pt came in by private vehicle but started having some significant symptoms. Pt reported having some palpitations over the last couple months but didn't think much of it. On Wednesday pt started feeling worse and was given an Az ithromycin pack and treatment for bronchitis by his family doctor. Pt did have a chest x-ray and labs done at [place], but he worsened to the point this morning that he presented to the ER and was found to have a critical situation. I was nearly requiring electrical cardioversion emergently due to the hypotension and symptomatic status. Pt is currently doing much better. I had given him Digoxin 0.25 mg IV x1 and started an insulin drip without the bolus once his BP responded to 4 liters of IV fluid of normal saline. Currently pt is doing much better and has no significant complaints. Pt has been found to have significant COPD exacerbation, which I am in the midst of placement of IV steroids. Dr. Foster did update me on the need to treat the exacerbation of COPD. I initiated Zosyn, antibiotic, Solu Medrol, nebulizer treatment, Singulair, and Claritin. I spoke with Dr. Kumar Bingham who will take over pt's care tomorrow morning. Source: patient, family, RN/MD, old records Exam Limitations: clinical condition Date Seen 02/12/21 Time Seen by a Provider: 09:25 Attending Physician Tracy Christopher Chad C MD Referring Physician Date of Admission Feb 12, 2021 at 09:24 Home Medications & Allergies Home Medications Reviewed patient Home Medication Reconciliation performed by pharmacy medication reconciliations community development technician and/or nursing. Patients Allergies have been reviewed. Allergies Allergies Coded Allergies peanut (Verified Allergy, Unknown, 12/28/18) shellfish derived (Verified Allergy, Unknown, 12/28/18) Past Krsiecb-Bcqrix-Zdmflq Hx Past Med/Social Hx: Reviewed Nursing Past Med/Soc Hx, Reviewed and Corrections made Patient Social History Marrital Status: Employed/Student: employed Alcohol Use: Occasionally Uses Smoking Status: Current Everyday Smoker Type Used: Cigarettes 2nd Hand Smoke Exposure: Yes Recent Hopitalizations: No Immunizations Up To Date Tetanus Booster (TDap): Unknown Pediatric: No Seasonal Allergies Seasonal Allergies: No Past Medical History Surgeries: Appendectomy, Gallbladder Sexually Transmitted Disease: No HIV/AIDS: No Gastrointestinal: Gastroesophageal Reflux, Chronic Constipation Loss of Vision: Bilateral Hearing Impairment: Denies History of Blood Disorders: No Adverse Reaction to Blood Diego: No (N/A) Review of Systems Constitutional: see HPI Respiratory: dyspnea on exertion, short of breath Cardiovascular: chest pain, palpitations Physical Exam Physical Exam Vital Signs Vital Signs - First Documented 02/12/21 02/12/21 10:00 12:00 Pulse 89 Resp 26 B/P (MAP) 95/69 (78) Pulse Ox 96 O2 Delivery Room Air Capillary Refill : Height, Weight, BMI Height: 5'7.00" Weight: 125lbs. 0.0oz. 56.800229vx; 22.62 BMI Method: General Appearance: WD/WN, Anxious, Chronically ill, Mild Distress, Thin Eyes: Bilateral Eye Normal Inspection, Bilateral Eye PERRL HEENT: PERRL/EOMI, Normal ENT Inspection, Pharynx Normal Neck: Full Range of Motion, Normal Inspection, Non Tender, Supple, Carotid Bruit Respiratory: Chest Non Tender, Lungs Clear, Normal Breath Sounds, No Accessory Muscle Use, No Respiratory Distress Cardiovascular: No Edema, No Gallop, No JVD, No Murmur, Normal Peripheral Pul ses, Irregularly Irregular, Tachycardia Gastrointestinal: Normal Bowel Sounds, No Organomegaly, No Pulsatile Mass, Non Tender, Soft Back: Normal Inspection, No CVA Tenderness, No Vertebral Tenderness Extremity: Normal Capillary Refill, Normal Inspection, Normal Range of Motion, Non Tender, No Calf Tenderness, No Pedal Edema Neurologic/Psychiatric: Alert, Oriented x3, No Motor/Sensory Deficits, Normal Mood/Affect Skin: Normal Color, Warm/Dry Lymphatic: No Adenopathy Results Results/Procedures Labs Patient resulted labs reviewed. Assessment/Plan Admission Diagnosis Assessment: New onset atrial fibrillation with severe hypotension status post 4 L of normal saline transferred from [facility] to [facility] for higher level care and cardiology care New diagnosis of exacerbation of COPD Current smoker Profound dehydration Plan: Status post Cardizem drip now normal sinus rhythm Cardiology appreciated Echo Exacerbation of COPD meds Admission Status: Inpatient Order (span 2 midnights) Reason for Inpatient Admission: A. fib with RVR with hypotension Diagnosis/Problems Diagnosis/Problems (1) Atrial fibrillation with RVR (2) COPD exacerbation (3) Smoker (4) Dehydration (5) Acute bacterial bronchitis (6) On continuous oral anticoagulation (7) Leukocytosis Status: Acute TRACY CHRISTOPHER DO Feb 12, 2021 10:11
[2021-02-12] MEDS ORDERED: PIPERACILLIN/TAZOBACTAM (BULK) 4.5 GM in NS (IVPB) 100 ML IV NR (10:13)
[2021-02-12] MEDS ORDERED: LORATADINE (CLARITIN) 10 MG TAB PO ONE (10:15)
[2021-02-12] MEDS: methylPREDNISolone 125 MG (Solu-MEDROL) VIAL IVP SCH ×4 (10:27→23:19)
[2021-02-12] MEDS: APIXABAN 5 MG (ELIQUIS) TABLET PO SCH ×2 (10:27→20:05)
--- NOTE | 2021-02-12 11:37 | Tele-ICU Consult ---
History of Present Illness History of Present Illness Date Seen by Provider: Feb 12, 2021 Time Seen by Provider: 11:34 Date of Admission a fib with RVR Allergies and Home Medications Allergies Coded Allergies: peanut (Verified Allergy, Unknown, 12/28/18) shellfish derived (Verified Allergy, Unknown, 12/28/18) Home Medications Aspirin/Acetaminophen/Caffeine 1 Each Tablet, 1 EACH PO PRN, (Reported) Pantoprazole Sodium 40 Mg Tablet.dr, 40 MG PO DAILY Prescribed by: MAICOL DAIGLE on 01/04/19 1241 Past Medical/Social/Family Hx Patient Social History Tobacco Use?: Yes Tobacco type used: Cigarettes Smoking Status: Current Everyday Smoker Use of E-Cig and/or Vaping dev: No Substance use?: No Alcohol Use?: No Pt stated abuse/neglect: No Immunizations Up To Date Influenza Vaccine Up-to-Date: Yes; Up-to-Date Second COVID19 Vaccination Rei: 11/29/20 Current Status Advance Directives: No Communicates: Verbally Primary Language: Wolof Preferred Spoken Language: Wolof Is interpretation needed?: No Sensory deficits: Vision impairment Review of Systems Respiratory: no symptoms reported Sepsis Event Evaluation Height, Weight, BMI Height: 5'7.00" Weight: 125lbs. 0.0oz. 56.384873th; 22.62 BMI Method: Exam Exam Patient acknowledged, consented, and participated in this virtual visit which was conducted using real time audio/video Height & Weight Height: 5'7.00" Weight: 125lbs. 0.0oz. 56.475864lb; 22.62 BMI Method: Respiratory: Lungs Clear Cardiovascular: Regular Rate, Rhythm Gastrointestinal: normal bowel sounds Assessment/Plan Assessment/Plan eICU admit note 70 yo M with palpitations, turned out ot be new onset a fib with RVR, has converted to NSR, started on Eliquis.po Cardizem PMH Hx of mesentaric ischemia, ? s/p stenting, Hx of carotid artery disease, COPD- on Medrol, Hx of hiatal hernia pt is smoker will continue to monitor rate and rythm Harpreet Mcclure MD Time spent with patient (mins): 15 SHANNON MCCLURE MD Feb 12, 2021 11:37
[2021-02-12] MEDS ORDERED: ASPI-789 PO (12:01)
--- NOTE | 2021-02-12 12:36 | Consultation-Cardiology ---
HPI-Cardiology Cardiology Consultation: Date of Consultation 02/12/21 Time Seen by a Provider: 09:45 Date of Admission Attending Physician Tracy Ghotra DO Admitting Physician Kumar Bingham MD Consulting Physician EMMY BRYANT MD, MA, FACP, FACC, [facility], [facility] Physician requesting cardiology consult: Dr Ghotra HPI: Chief Complaint: Reason for consultation: New onset a-fib with RVR HPI Mr Hernandez is a 70 yr old male direct admitted to ICU 6 from [facility] with new onset a-fib with RVR. He reports since Wednesday he has had increasing chest heaviness describing it as a feeling "his chest was going to explode". He reports increasing SOB over the last few days. He reports a feeling of a rapid heart beat starting this morning. No c/o fever or chills. No c/o syncope or near syncope. He states he is feeling much better at this time. His family is at the bedside. Review of Systems-Cardiology Review of Systems Constitutional: No chills, No fever; malaise Eyes: As described under HPI Ears/Nose/Throat: No epistaxis, No recent hearing loss Respiratory: As described under HPI Cardiovascular: As described under HPI Gastrointestinal: No diarrhea; nausea; No vomiting Genitourinary: No dysuria, No hematuria Musculoskeletal: no symptoms reported Skin: No rash on exposed areas, No ulcerations on exposed areas Psychiatric/Neurological: No anxiety, No depression, No seizure, No focal weakness, No syncope Hematologic: No bleeding abnormalities XCQ-Dtcwef-Wchgss Hx Patient Social History Smoking Status: Current Everyday Smoker 2nd Hand Smoke Exposure: Yes Have you traveled recently?: No Alcohol Use?: No Pt feels they are or have been: No Tobacco type used: Cigarettes Immunizations Up To Date Tetanus Booster (TDap): Unknown Past Medical History PMH As described under Assessment. Family Medical History Family Medical History: Reports father passed from [place] at age 65 Allergies and Home Medications Allergies Coded Allergies: peanut (Verified Allergy, Unknown, 12/28/18) shellfish derived (Verified Allergy, Unknown, 12/28/18) Home Medications Aspirin/Acetaminophen/Caffeine 1 Each Tablet, 2 EACH PO Q6-8HR PRN for Headache, (Reported) Last Action: Reviewed Patient Home Medication List Home Medication List Reviewed: Yes Physical Exam-Cardiology Physical Exam Vital Signs/I&O Capillary Refill : Constitutional: AAO x 3, well-developed, well-nourished HEENT: PERRL, hearing is well preserved, oral hygience is good Neck: No carotid bruit; carotid pulses are 2 + bilaterally Respiratory: No accessory muscle use, No respiratory distress; chest expansion is symmetric, chest is bilaterally symmetric, other (diminished air entry all sánchez; prolonged exp phase; barrel shaped chest) Cardiovascular: regular rate-rhythm; No JVD; S1 and S2 Gastrointestinal: soft, audible bowel sounds Extremities: no lower extremity edema bilateral Neurologic/Psychiatric: oriented x 3, other (moves all limbs equally) Skin: No rash on exposed areas, No ulcerations on exposed areas A/P-Cardiology Assessment/Admission Diagnosis New onset a-fib with RVR - first diagnosed on EKG of 02-12-2021 from [facility] - converted spontaneously to SR with controlled rate Leukocytosis of undetermined etiology - management per Dr Ghotra 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 Queen of [facility] services (possible stenting) Reports h/o bilat carotid arterial dz (pt reports L>R) for which he follows with Dr. Queen of [facility] COPD - seen on CXR of 02-12-21 Tobaccoism 1 PPD - cessation advised H/O hiatal hernia Family h/o CAD (father passed from [place] age 65) Discussion and Recomendations Eliquis for stroke prophylaxis D/t reported h/o messenteric artery intervention, possible stenting, and carotid arterial disease, we are going to start ASA 81mg daily We are going to request records from [facility] Leukocytosis (seen on lab of 02-12-21 from [facility]) of undetermined etiology - management per Dr Ghotra COPD - management per Dr Ghotra Echocardiogram to eval function and structure Monitor lab closely Replace electrolytes as indicated Smoking cessation advised We have spoken with Dr. Ghotra of Medical services regarding his CV issues. We would like to thank her for this consult Further recs will be based on his hospital course EMMY BRYANT MD FACP FAC CCDS Feb 12, 2021 12:36
[2021-02-12 13:38] LABS: ABG BASE EXCESS -4.5 MMOL/L (-2.5-2.5); ABG OXYGEN SATURATION 95 % (94-100); ABG PCO2 34 MMHG (35-45); ABG PH 7.38 (7.37-7.43); ABG PO2 68 MMHG (79-93); ABG TCO2 20.8 MMOL/L (21.0-31.0)
[2021-02-12 13:41] LABS: ALLENS TEST YES-POS; INSPIRED O2 ROOM AIR; PATIENT TEMP 36.6; VENTILATOR NO
[2021-02-12 14:46] LABS: FIBRIN DEGRADATION PRODUCTS 0.45 UG/ML (0.00-0.49)
[2021-02-12] MEDS: RT-ALBUTEROL/IPRATROPIUM 3 ML (DUONEB) VIAL INH SCH ×3 (15:11→22:21)
[2021-02-12] MEDS: RT-BUDESONIDE NEBS 0.5 MG/2ML (PULMICORT) AMP INH SCH ×2 (15:12→22:21)
[2021-02-12] MEDS ORDERED: REGADENOSON 0.4 MG/5 ML SYR (LEXISCAN) IV ONE (16:30)
[2021-02-12] MEDS: PIPERACILLIN/TAZOBACTAM (BULK) 4.5 GM in NS (IVPB) 100 ML IV SCH ×2 (19:23→23:16)
[2021-02-12] MEDS ORDERED: MONTELUKAST 10 MG (SINGULAIR) TAB PO SCH (21:00)
[2021-02-13] MEDS: NS IV 1000 ML 1,000 ML IV SCH ×3 (00:21→18:04)
[2021-02-13] MEDS: RT-ALBUTEROL/IPRATROPIUM 3 ML (DUONEB) VIAL INH SCH ×5 (02:32→19:00)
[2021-02-13 03:28] LABS: BASOPHILS % (AUTO) 0 % (0-10); LYMPHOCYTES # (AUTO) 0.8 10^3/uL (1.0-4.0)
[2021-02-13 03:31] LABS: EOSINOPHILS % (AUTO) 0 % (0-10); HEMATOCRIT 39 % (40-54); HEMOGLOBIN 12.8 g/dL (13.3-17.7); LYMPHOCYTES % (AUTO) 4 % (12-44); MEAN CORPUSCULAR HEMOGLOBIN 33 pg (25-34); MEAN CORPUSCULAR HGB CONC 33 g/dL (32-36); MEAN CORPUSCULAR VOLUME 102 fL (80-99); MONOCYTES # (AUTO) 0.6 10^3/uL (0.0-1.0); MONOCYTES % (AUTO) 3 % (0-12); NEUTROPHILS # (AUTO) 16.9 10^3/uL (1.8-7.8); NEUTROPHILS % (AUTO) 91 % (42-75); PLATELET COUNT 77 10^3/uL (130-400); WHITE BLOOD COUNT 18.7 10^3/uL (4.3-11.0)
[2021-02-13 03:52] LABS: ALBUMIN 2.9 GM/DL (3.2-4.5); CHLORIDE 107 MMOL/L (98-107); POTASSIUM 3.7 MMOL/L (3.6-5.0); SODIUM 136 MMOL/L (135-145)
[2021-02-13 03:54] LABS: CALCIUM 7.7 MG/DL (8.5-10.1)
[2021-02-13 03:55] LABS: GLUCOSE 215 MG/DL (70-105); TOTAL PROTEIN 6.1 GM/DL (6.4-8.2)
[2021-02-13 03:56] LABS: CARBON DIOXIDE 16 MMOL/L (21-32)
[2021-02-13 03:57] LABS: BILIRUBIN,TOTAL 0.4 MG/DL (0.1-1.0)
[2021-02-13 03:58] LABS: ALKALINE PHOSPHATASE 50 U/L (40-136); PHOSPHORUS 2.4 MG/DL (2.3-4.7)
[2021-02-13 03:59] LABS: CREATININE SERUM 0.75 MG/DL (0.60-1.30); GFR ESTIMATED > 60
[2021-02-13 04:00] LABS: BUN/CREATININE RATIO 20
[2021-02-13 04:01] LABS: ALANINE AMINOTRANSFERASE 10 U/L (0-55); MAGNESIUM 1.7 MG/DL (1.6-2.4)
[2021-02-13] MEDS: methylPREDNISolone 125 MG (Solu-MEDROL) VIAL IVP SCH ×3 (05:37→18:04)
[2021-02-13] MEDS ORDERED: MAGNESIUM 1 GM/100 ML IVPB 100 ML IV SCH (06:00)
[2021-02-13] MEDS ORDERED: POTASSIUM CL 10MEQ/50ML IVPB 50 ML IV SCH (06:00)
[2021-02-13] MEDS ORDERED: KCL 20 MEQ TAB (K-DUR) PO SCH (06:00)
[2021-02-13] MEDS: RT-BUDESONIDE NEBS 0.5 MG/2ML (PULMICORT) AMP INH SCH (06:26)
[2021-02-13 06:32] LABS: BAND NEUTROPHILS 1 %; LYMPHOCYTES % (MANUAL) 5 %; MONOCYTES % (MANUAL) 2 %; NEUTROPHILS % (MANUAL) 92 %; RBC MORPH NORMAL
[2021-02-13] MEDS: PIPERACILLIN/TAZOBACTAM (BULK) 4.5 GM in NS (IVPB) 100 ML IV SCH ×2 (08:32→18:04)
[2021-02-13] MEDS: APIXABAN 5 MG (ELIQUIS) TABLET PO SCH (08:34)
[2021-02-13] MEDS: SENNA W/DOCUSATE (SENOKOT S) TABLET PO SCH (08:36)
--- NOTE | 2021-02-13 08:59 | Diagnostic Imaging Report ---
INDICATION: Atrial fibrillation and dyspnea. Time of exam: 3:34 AM No prior studies are available for comparison. The heart size is normal. There is central congestion. Interstitial markings are somewhat prominent and mild congestive changes cannot be excluded. There is no parenchymal consolidation. No effusion or pneumothorax is identified. IMPRESSION: There appear to be some mild congestive changes. No other significant abnormality is seen. Dictated by: Dictated on workstation # [id number]
[2021-02-13] MEDS ORDERED: LORATADINE (CLARITIN) 10 MG TAB PO SCH (09:00)
[2021-02-13] MEDS ORDERED: REGADENOSON 0.4 MG/5 ML SYR (LEXISCAN) IV ONE (12:10)
[2021-02-13 12:15] VITALS: BP 133/77
[2021-02-13 16:00] VITALS: BP 104/56
--- NOTE | 2021-02-13 17:14 | Tele-ICU Progress Note ---
Subjective Date Seen by a Provider: Feb 13, 2021 Time Seen by a Provider: 08:58 Sepsis Event Evaluation Height, Weight, BMI Height: 5'7.00" Weight: 125lbs. 0.0oz. 56.259937tn; 22.62 BMI Method: Focused Exam Lactate Level 02/12/21 14:10: Lactic Acid Level 0.76 Exam Exam Patient acknowledged, consented, and participated in this virtual visit which was conducted using real time audio/video Vital Signs Date Time Temp Pulse Resp B/P (MAP) Pulse Ox O2 Delivery O2 Flow Rate FiO2 02/13/21 16:21 96 Room Air 02/13/21 14:12 95 Room Air 02/13/21 13:00 75 02/13/21 12:15 93 14 133/77 (95) 95 Room Air 02/13/21 12:00 96 Room Air 02/13/21 10:34 98 Room Air 02/13/21 08:05 36.5 02/13/21 08:00 96 Room Air 02/13/21 07:00 92 02/13/21 06:26 98 Room Air 02/13/21 06:00 79 18 118/65 (82) 100 Room Air 02/13/21 05:00 65 111/62 (78) 97 Room Air 02/13/21 04:00 65 110/61 (77) 96 Room Air 02/13/21 03:09 36.3 02/13/21 03:08 96 Room Air 02/13/21 03:00 75 22 121/58 (79) 97 Room Air 02/13/21 02:35 96 Room Air 02/13/21 02:00 79 15 101/58 (72) 95 Room Air 02/13/21 01:00 81 24 106/55 (72) 95 Room Air 02/13/21 01:00 82 02/13/21 00:00 84 14 108/54 (72) 95 Room Air 02/12/21 23:21 96 Room Air 02/12/21 23:20 36.6 02/12/21 23:00 88 17 120/58 (78) 95 Room Air 02/12/21 22:22 96 Room Air 02/12/21 22:21 96 Room Air 02/12/21 22:00 75 17 126/68 (87) 98 Room Air 02/12/21 21:00 71 17 118/69 (85) 96 Room Air 02/12/21 20:00 78 15 125/68 (87) 95 Room Air 02/12/21 20:00 96 Room Air 02/12/21 19:55 36.6 02/12/21 19:00 76 17 120/68 (85) 95 Room Air 02/12/21 19:00 84 I & O 02/13/21 06:59 Intake Total 2870 ml Output Total 2325 ml Balance 545 ml Height & Weight Height: 5'7.00" Weight: 125lbs. 0.0oz. 56.944667hk; 22.62 BMI Method: General Appearance: WD/WN, Anxious, Chronically ill, Mild Distress, Thin HEENT: PERRL/EOMI, Normal ENT Inspection, Pharynx Normal Neck: Full Range of Motion, Normal Inspection, Non Tender, Supple, Carotid Bruit Respiratory: Chest Non Tender, Lungs Clear, Normal Breath Sounds, No Accessory Muscle Use, No Respiratory Distress Cardiovascular: No Edema, No Gallop, No JVD, No Murmur, Normal Peripheral Pulses, Irregularly Irregular, Tachycardia Gastrointestinal: normal bowel sounds Extremity: Normal Capillary Refill, Normal Inspection, Normal Range of Motion, Non Tender, No Calf Tenderness, No Pedal Edema Neurologic/Psychiatric: Alert, Oriented x3, No Motor/Sensory Deficits, Normal Mood/Affect Skin: Normal Color, Warm/Dry Lymphatic: No Adenopathy Results Lab Laboratory Tests 02/13/21 03:05 Assessment/Plan Assessment/Plan (Tele-ICU Physician , Progress Note ) Available chart/ vitals / labs / Images reviewed Video assessment done using teleICU camera, rest of exam as per RN Events overnight : Afebrile RA hemodynamically stable, no pressors, I/O = neg 100 Drips: As per RN exam : Consultants: [facility] Hospital course: 02/12- 70 yo M with palpitations, turned out ot be new onset a fib with RVR, has converted to NSR, started on Eliquis.po Cardizem ECHO 02/12/2021- EF 60% gr I dst dsfn , RVSP 35 mm A/P New onset a-fib with RVR - as per cards -converted spontaneously to SR with controlled rate - eliquis -ECHO 02/12/2021- EF 60% gr I dst dsfn , RVSP 35 mm leucocytosis - zosyn 02/12, cxr 02/13 - no infiltrate COPD suspected with + tobacco and CXR - SM q 6 h 60 - ? to decrease -ICS/ br - dil H/O hiatal hernia h/o h/o mesenteric artery intervention (possible stenting) h/o bilat carotid arterial dz Plans in collaboration with bedside consultants and IM MDs. RN to reach out if any questions or concerns A total of _15minutes of critical care time was devoted to this patient today, required to treat and/or prevent further deterioration of critical care condition ( as above ) . YASMINE MARCELO MD Feb 13, 2021 17:14
[2021-02-13] MEDS ORDERED: APIX5TAB PO (18:58)
[2021-02-13] MEDS ORDERED: DILT240C91 PO (18:58)
--- NOTE | 2021-02-13 19:03 | Discharge Summary ---
Discharge Summary Hospital Course Problems/Dx: (1) Atrial fibrillation with RVR (2) COPD exacerbation (3) Smoker (4) Dehydration (5) Acute bacterial bronchitis (6) On continuous oral anticoagulation (7) Leukocytosis Status: Acute Hospital Course Date of Admission: Feb 12, 2021 at 09:24 Admission Diagnosis : Family Physician/Provider: Kumar Bingham MD Date of Discharge: 02/13/21 Discharge Diagnosis: [ ] Hospital Course: [ ] Labs and Pending Lab Test: Laboratory Tests 02/13/21 03:05: White Blood Count 18.7H, Red Blood Count 3.86L, Hemoglobin 12.8L, Hematocrit 39L , Mean Corpuscular Volume 102H, Mean Corpuscular Hemoglobin 33, Mean Corpuscular Hemoglobin Concent 33, Red Cell Distribution Width 13.2, Platelet Count 77L, Mean Platelet Volume 10.0, Immature Granulocyte % (Auto) 2, Neutrophils (%) (Auto) 91H, Lymphocytes (%) (Auto) 4L, Monocytes (%) (Auto) 3, Eosinophils (%) (Auto) 0, Basophils (%) (Auto) 0, Neutrophils # (Auto) 16.9H, Lymphocytes # (Auto) 0.8L, Monocytes # (Auto) 0.6, Eosinophils # (Auto) 0.0, Basophils # (Auto) 0.0, Immature Granulocyte # (Auto) 0.4H, Neutrophils % (Manual) 92, Lymphocytes % (Manual) 5, Monocytes % (Manual) 2, Band Neutrophils 1, Percent Immature Platelet Fraction 6.3, Blood Morphology Comment NORMAL, Sodium Level 136, Potassium Level 3.7, Chloride Level 107, Carbon Dioxide Level 16L, Anion Gap 13, Blood Urea Nitrogen 15, Creatinine 0.75, Estimat Glomerular Filtration Rate > 60, BUN/Creatinine Ratio 20, Glucose Level 215H, Calcium Level 7.7L, Corrected Calcium 8.6, Phosphorus Level 2.4, Magnesium Level 1.7, Total Bilir ubin 0.4, Aspartate Amino Transf (AST/SGOT) 18, Alanine Aminotransferase (ALT/SGPT) 10, Alkaline Phosphatase 50, Total Protein 6.1L, Albumin 2.9L Microbiology 02/12/21 MRSA Screen - Final, Complete MRSA not isolated Home Meds Active Diltiazem 24Hr ER (Diltiazem HCl) 240 Mg Cap.er.24h 240 Mg PO DAILY Eliquis (Apixaban) 5 Mg Tablet 5 Mg PO BID Reported Excedrin Migraine Caplet (Aspirin/Acetaminophen/Caffeine) 1 Each Tablet 2 Each PO Q6-8HR PRN Assessment/Pt Instructions Complete your azithromycin. start your steriods that were sent to [place] yesterday. -Start your new inhaler. Will send in Trelegy (notice SFM if cost prohibitive). It is once daily. Discharge Planning: >30 minutes discharge planning Discharge Instructions Discharge Diet: Regular Diet Activity as Tolerated: Yes Discharge Physical Examination Vital Signs Vital Signs Date Time Temp Pulse Resp B/P (MAP) Pulse Ox O2 Delivery O2 Flow Rate FiO2 02/13/21 16:21 96 Room Air 02/13/21 16:00 73 14 104/56 (72) 02/13/21 08:05 36.5 General Appearance: No Apparent Distress HEENT: PERRL/EOMI Respiratory: Chest Non Tender, Lungs Clear, Normal Breath Sounds Cardiovascular: Regular Rate, Rhythm Gastrointestinal: Non Tender, Soft Extremity: Non Tender Skin: Normal Color Neurologic/Psychiatric: Alert, Oriented x3 Allergies: Coded Allergies: peanut (Verified Allergy, Unknown, 12/28/18) shellfish derived (Verified Allergy, Unknown, 12/28/18) Discharge Summary Date of Admission Feb 12, 2021 at 09:24 Date of Discharge Admission Diagnosis Assessment: New onset atrial fibrillation with severe hypotension status post 4 L of normal saline transferred from [facility] to [facility] for higher level care and cardiology care New diagnosis of exacerbation of COPD Current smoker Profound dehydration Plan: Status post Cardizem drip now normal sinus rhythm Cardiology appreciated Echo Exacerbation of COPD meds Discharge Diagnosis (1) Atrial fibrillation with RVR (2) COPD exacerbation (3) Smoker (4) Dehydration (5) Acute bacterial bronchitis (6) On continuous oral anticoagulation (7) Leukocytosis Status: Acute KUMAR BINGHAM MD Feb 13, 2021 19:03
[2021-02-13] MEDS ORDERED: FLUT1BLS3 IH (19:04)
--- NOTE | 2021-02-13 19:11 | Progress Note - Cardiology ---
Cardiology SOAP Progress Note Subjective: No cp or palp or syncope or shortness of breath No n/v/d No weakness or malaise Wishes to go home Objective: I&O/Vital Signs 02/13/21 02/13/21 02/13/21 02/13/21 08:00 08:05 10:34 12:00 Temp 36.5 Pulse Ox 96 98 96 O2 Delivery Room Air Room Air Room Air 02/13/21 02/13/21 02/13/21 02/13/21 12:15 13:00 14:12 16:00 Pulse 93 75 73 Resp 14 14 B/P (MAP) 133/77 (95) 104/56 (72) Pulse Ox 95 95 96 O2 Delivery Room Air Room Air Room Air 02/13/21 16:21 Pulse Ox 96 O2 Delivery Room Air 02/13/21 00:00 Intake Total 2870 ml Output Total 1975 ml Balance 895 ml Weight (Pounds): 125 Weight (Ounces): 0.0 Weight (Calculated Kilograms): 56.770186 Constitutional: AAO x 3, well-developed, well-nourished Respiratory: No accessory muscle use, No respiratory distress; chest expansion is symmetric, chest is bilaterally symmetric, other (diminished air entry all sánchez; prolonged exp phase; barrel shaped chest) Cardiovascular: regular rate-rhythm; No JVD; S1 and S2 Gastrointestional: soft, audible bowel sounds Extremities: no lower extremity edema bilateral Neurologic/Psychiatric: oriented x 3, other (moves all limbs equally) Skin: No rash on exposed areas, No ulcerations on exposed areas Results/Procedures: Labs Laboratory Tests 02/13/21 03:05: White Blood Count 18.7H, Red Blood Count 3.86L, Hemoglobin 12.8L, Hematocrit 39L , Mean Corpuscular Volume 102H, Mean Corpuscular Hemoglobin 33, Mean Corpuscular Hemoglobin Concent 33, Red Cell Distribution Width 13.2, Platelet Count 77L, Mean Platelet Volume 10.0, Immature Granulocyte % (Auto) 2, Neutrophils (%) (Au to) 91H, Lymphocytes (%) (Auto) 4L, Monocytes (%) (Auto) 3, Eosinophils (%) (Auto) 0, Basophils (%) (Auto) 0, Neutrophils # (Auto) 16.9H, Lymphocytes # (Auto) 0.8L, Monocytes # (Auto) 0.6, Eosinophils # (Auto) 0.0, Basophils # (Auto) 0.0, Immature Granulocyte # (Auto) 0.4H, Neutrophils % (Manual) 92, Lymp hocytes % (Manual) 5, Monocytes % (Manual) 2, Band Neutrophils 1, Percent Immature Platelet Fraction 6.3, Blood Morphology Comment NORMAL, Sodium Level 136, Potassium Level 3.7, Chloride Level 107, Carbon Dioxide Level 16L, Anion Gap 13, Blood Urea Nitrogen 15, Creatinine 0.75, Estimat Glomerular Filtration Rate > 60, BUN/Creatinine Ratio 20, Glucose Level 215H, Calcium Level 7.7L, Corrected Calcium 8.6, Phosphorus Level 2.4, Magnesium Level 1.7, Total Bilirubin 0.4, Aspartate Amino Transf (AST/SGOT) 18, Alanine Aminotransferase (A LT/SGPT) 10, Alkaline Phosphatase 50, Total Protein 6.1L, Albumin 2.9L Microbiology 02/12/21 MRSA Screen - Final, Complete MRSA not isolated Laboratory Tests 02/13/21 03:05 A/P: Assessment: New onset a-fib with RVR - first diagnosed on EKG of 02-12-2021 from [facility] - converted spontaneously to SR with controlled rate Minimal troponin elevation, likely type 2 ID due A Fib with RVR and hypotension at presentation MPI of 02/13/21: no ischemia or infarction, LVEF normal Echo of 02/12/21: LVEF 60-65%, mod MAC, grade 1 heard dysfunction, PASP 35-40 mmHg Leukocytosis and hyperglycemia: [place] [facility] [place] 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 [facility] CV services (possible stenting) Reports h/o bilat carotid arterial dz (pt reports L>R) for which he follows with Dr. [facility] CV services COPD - seen on CXR of 02-12-21 Tobaccoism 1 PPD - cessation advised H/O hiatal hernia Family h/o CAD (father passed from ID age 65) Plan: Continue Eliquis for stroke prophylaxis Continue ASA because of h/o PAD Continue long-acting diltiazem for vent rate control in case of recurrence of AF Outpt f/u advised Smoking cessation advised I had a long and detailed discussion with him and his , and answered CV-rel ated questions EMMY BRYANT MD FACP FACC CCDS Feb 13, 2021 19:11
--- NOTE | 2021-02-13 21:54 | STRESS TEST ---
DATE OF SERVICE: 02/13/2021 RESTING AND POST REGADENOSON TECHNETIUM-99M TETROFOSMIN SPECT CT IMAGING ORDERING PHYSICIAN: Machelle Mcdowell APRN PRIMARY PHYSICIAN: Dr. Bingham. OTHER PHYSICIAN: Dr. Bryant. CLINICAL DIAGNOSIS: Chest discomfort, atrial fibrillation with a rapid ventricular response. Baseline images were carried out after injection of 10.68 mCi of technetium-99m Tetrofosmin. This was followed by 0.4 mg of regadenoson that was followed by 31.5 mCi of technetium-99m Tetrofosmin for stress imaging. The electrocardiogram showed sinus rhythm at baseline. It did not change significantly with the regadenoson infusion. The patient tolerated the procedure well. Review of images at rest and following stress does not indicate any distinct perfusion defects consistent with significant myocardial ischemia or infarction. Gated images show normal global left ventricular systolic function with normal regional wall motion. Left ventricular ejection fraction is calculated to be 77%. CONCLUSIONS: 1. No evidence of significant myocardial ischemia or infarction on this study. 2. Normal regional wall motion. 3. Normal global left ventricular systolic function with a calculated ejection fraction of 77%. Job ID: [id number] DocumentID: [id number] Dictated Date: 02/13/2021 18:01:50 Ccnp Date: 02/13/2021 18:45:26 Dictated By: EMMY BRYANT MD, MA, FACP, FACC,
== END 2021-02-13 19:28 | disposition home or self-care (01) | DRG 281 ==
LOC: ICU 09:24 → CSD 02-13 13:00
PROVIDERS: ADMIT Family Medicine; ATTEND Family Medicine
DX: I48.91 Unspecified atrial fibrillation (principal); I21.A1 Myocardial infarction type 2; J44.1 Chronic obstructive pulmonary disease with (acute) exacerbation; I95.9 Hypotension, unspecified; F17.210 Nicotine dependence, cigarettes, uncomplicated; K21.9 Gastro-esophageal reflux disease without esophagitis; E86.0 Dehydration; D72.829 Elevated white blood cell count, unspecified; R73.9 Hyperglycemia, unspecified; I25.10 Atherosclerotic heart disease of native coronary artery without angina pectoris; Z95.5 Presence of coronary angioplasty implant and graft; Z82.49 Family history of ischemic heart disease and other diseases of the circulatory system; Z79.01 Long term (current) use of anticoagulants
CPT/HCPCS: 36415; 71045; 78452; 80053; 82805; 83605; 83735; 83880; 84100; 84484; 85007; 85027; 85379; 85730; 87040; 87081; 93017; 93306; 94640

== ENCOUNTER 2021-07-08 13:07 | Outpatient (RCR) | payer MEDICARE ==
[2021-05-01 13:23] LABS: HEMOGLOBIN 13.3 g/dL (13.3-17.7)
[2021-05-01 13:26] LABS: ABSOLUTE RETIC # 94 10e9/uL (24-90); BASOPHILS % (AUTO) 0 % (0-10); EOSINOPHILS # (AUTO) 0.4 10^3/uL (0.0-0.3); EOSINOPHILS % (AUTO) 5 % (0-10); HEMATOCRIT 42 % (40-54); LYMPHOCYTES # (AUTO) 1.4 10^3/uL (1.0-4.0); LYMPHOCYTES % (AUTO) 21 % (12-44); MEAN CORPUSCULAR HEMOGLOBIN 33 pg (25-34); MEAN CORPUSCULAR HGB CONC 32 g/dL (32-36); MEAN CORPUSCULAR VOLUME 105 fL (80-99); MEAN PLATELET VOLUME 9.3 fL (9.0-12.2); MONOCYTES # (AUTO) 1.6 10^3/uL (0.0-1.0); MONOCYTES % (AUTO) 24 % (0-12); NEUTROPHILS # (AUTO) 3.3 10^3/uL (1.8-7.8); NEUTROPHILS % (AUTO) 49 % (42-75); PLATELET COUNT 89 10^3/uL (130-400); RETICULOCYTE % 2.35 % (0.50-2.40); WHITE BLOOD COUNT 6.9 10^3/uL (4.3-11.0)
[2021-05-01 13:37] LABS: ALBUMIN 3.8 GM/DL (3.2-4.5); BILIRUBIN,TOTAL 0.4 MG/DL (0.1-1.0); CALCIUM 9.4 MG/DL (8.5-10.1); CREATININE SERUM 0.75 MG/DL (0.60-1.30); POTASSIUM 4.1 MMOL/L (3.6-5.0); TOTAL PROTEIN 7.8 GM/DL (6.4-8.2)
[~2021-07-08 13:07] MED LIST changes: +APIX5TAB PO; +ASPI-789 PO; +AZIT250T12 PO; +CEFD300C3 PO; +DILT240C91 PO; +FLUT1BLS3 IH; +MV-M1TAB77 PO; +SIME180C4 PO
[2021-07-08 13:20] LABS: BASOPHILS % (AUTO) 0 % (0-10)
[2021-07-08 13:22] LABS: EOSINOPHILS # (AUTO) 0.2 10^3/uL (0.0-0.3); EOSINOPHILS % (AUTO) 2 % (0-10); HEMATOCRIT 43 % (40-54); LYMPHOCYTES # (AUTO) 1.4 10^3/uL (1.0-4.0); LYMPHOCYTES % (AUTO) 14 % (12-44); MEAN CORPUSCULAR HEMOGLOBIN 33 pg (25-34); MEAN CORPUSCULAR HGB CONC 33 g/dL (32-36); MEAN CORPUSCULAR VOLUME 102 fL (80-99); MEAN PLATELET VOLUME 9.7 fL (9.0-12.2); MONOCYTES # (AUTO) 1.7 10^3/uL (0.0-1.0); MONOCYTES % (AUTO) 17 % (0-12); NEUTROPHILS # (AUTO) 6.6 10^3/uL (1.8-7.8); NEUTROPHILS % (AUTO) 64 % (42-75); PLATELET COUNT 70 10^3/uL (130-400); WHITE BLOOD COUNT 10.3 10^3/uL (4.3-11.0)
[2021-07-08 13:41] LABS: ALBUMIN 3.7 GM/DL (3.2-4.5); BILIRUBIN,TOTAL 0.4 MG/DL (0.1-1.0); CALCIUM 9.3 MG/DL (8.5-10.1); CREATININE SERUM 0.77 MG/DL (0.60-1.30); TOTAL PROTEIN 8.1 GM/DL (6.4-8.2)
== END 2021-07-30 | disposition home or self-care (01) ==
LOC: ONC 13:07
PROVIDERS: ATTEND Internal Medicine Hematology & Oncology
DX: D72.821 Monocytosis (symptomatic) (principal); D69.6 Thrombocytopenia, unspecified; I48.91 Unspecified atrial fibrillation
CPT/HCPCS: 80053; 83615; 85025; 85045; G0463; 99213

== ENCOUNTER 2021-12-25 14:35 | Outpatient (CLI) | payer MEDICARE ==
[~2021-12-25] VITALS: Ht 170.2 cm; Wt 54.5 kg
[2021-12-25] MEDS ORDERED: RIVA10TA PO (15:04)
[2021-12-26] MEDS ORDERED: DILT120T3 PO (11:51)
[2021-12-26] MEDS ORDERED: GUAI120L56 PO (11:56)
[2021-12-26] MEDS ORDERED: PANT40TA52 PO (11:56)
[2021-12-26] MEDS ORDERED: ALLO300T2 PO (11:56)
== END 2021-12-25 15:10 | disposition home or self-care (01) ==
LOC: PREOP 14:35
PROVIDERS: ATTEND Surgery
DX: Z01.818 Encounter for other preprocedural examination (principal)

== ENCOUNTER 2021-12-26 08:45 | Day surgery (SDC) | payer MEDICARE ==
[2021-12-26] VITALS (12 sets, daily range): BP systolic 102–127; BP diastolic 58–72
[~2021-12-26] VITALS: Ht 170.2 cm; Wt 54.5 kg
[~2021-12-26 08:45] MED LIST changes: +RIVA10TA PO
[2021-12-26] MEDS ORDERED: ceFAZolin 2 GM IV Premixed 50 ML IV ONE (09:15)
[2021-12-26] MEDS ORDERED: DILT120T3 PO (11:51)
[2021-12-26] MEDS ORDERED: GUAI120L56 PO (11:56)
[2021-12-26] MEDS ORDERED: PANT40TA52 PO (11:56)
[2021-12-26] MEDS ORDERED: ALLO300T2 PO (11:56)
[2021-12-26] MEDS ORDERED: HEParin (CENTRAL IV FLUSH) 500 UNIT/5 ML SYR ONE (13:14)
[2021-12-26] MEDS ORDERED: LIDOCAINE/EPI 1%-1:200,000 (XYLOCAINE) 30 ML VIAL ONE (13:14)
[2021-12-26] MEDS ORDERED: 0.9% SODIUM CHLORIDE PF INJ 20 ML VIAL ONE (13:14)
--- NOTE | 2021-12-26 13:43 | Progress Note-Pre Operative ---
Pre-Operative Progress Note H&P Reviewed The H&P was reviewed, patient examined and no changes noted. Date Seen by Provider: December 26, 2021 Time Seen by Provider: 13:43 Date H&P Reviewed: December 26, 2021 Time H&P Reviewed: 13:43 Pre-Operative Diagnosis: PERRY MEDRANO DO December 26, 2021 13:43
[2021-12-26] MEDS ORDERED: PROPOFOL INJECTION 50 ML IV ONE (13:44)
[2021-12-26] MEDS ORDERED: MIDAZOLAM 2 MG/2 ML (VERSED) VIAL ONE (14:03)
--- NOTE | 2021-12-26 14:37 | Anesthesia-General Post-Op ---
MAC Patient Condition Mental Status/LOC: Same as Preop Cardiovascular: Satisfactory Nausea/Vomiting: Absent Respiratory: Satisfactory Pain: Controlled Complications: Absent Post Op Complications Complications None Follow Up Care/Instructions Patient Instructions None needed. Anesthesiology Discharge Order Discharge Order Patient is doing well, no complaints, stable vital signs, no apparent adverse anesthesia problems. No complications reported per nursing. MALVIN SLAUGHTER CRNA December 26, 2021 14:37
--- NOTE | 2021-12-26 14:42 | Discharge Inst-Simple/Standard ---
Discharge Inst-Standard Patient Instructions/Follow Up Plan of Care/Instructions/FU: 2 weeks Susana Activity as Tolerated: No Discharge Diet: Regular Diet Other Inst to Patient Follow up Appt: Make appointment for 2 week. Instructions: No lifting greater than 10 pounds. No strenuous activity. May shower in 24 hours, no tub bath or soaking. Use incentive spirometer at home as directed. No Smoking Skin/Wound Care: You have special glue over your incision that will fall off on it's own. Ice pack on 15 min off 30 min and repeat for first 48 hours. This decreases swelling and discomfort. Symptoms to Report: Appetite Changes, Extremity Discoloration, Numbness/Tingling, Swelling Increased, Bleeding Excessive, Eyesight Changes, Pain Increased, Urine Color Change, Constipation(Persistent), Fever over 101 degree F, Pain/Pressure in chest, Urinating Difficulty, Cough Up/Vomit Blood, Heart Beat Irreg/Pounding, Pain/Pressure in jaw, Vaginal Bleeding Increase, Cramps in feet or legs, Lightheadedness, Pain/Pressure in shoulder, Diarrhea(Persistent), Memory Changes Suddenly, Questions/Concerns, Weight gain consecutive days, Dizziness/Fainting, Nausea/Vomiting, Shortness of Breath, Weight gain over 2 pounds If questions or concerns contact your physician Or seek help at emergency department. PERYR BETANCOURT DO December 26, 2021 14:42
[2021-12-26] MEDS ORDERED: ONDANSETRON 4 MG/2 ML (SDV) Z0FRAN IVP PRN (14:45)
[2021-12-26] MEDS ORDERED: morphine INJ 10 MG/ML 1ML (SYR OR VIAL) IVP ONE (14:45)
[2021-12-26] MEDS ORDERED: fentaNYL INJ 100 MCG/2 ML AMP IVP ONE (14:45)
[2021-12-26] MEDS ORDERED: MEPERIDINE (DEMEROL) INJ 50 MG/ML IVP ONE (14:45)
--- NOTE | 2021-12-26 15:08 | Diagnostic Imaging Report ---
INDICATION: Port-A-Cath placement. TECHNIQUE: Frontal chest obtained at 02:43 p.m. and compared to 03/13/2021. FINDINGS: There is a new Port-A-Cath in place over the right chest with catheter tip overlying the low SVC. There is worsening infiltrate in the right upper lobe and right lung base. There is minimal trace of pleural fluid. There is no pneumothorax following device placement. There are chronic interstitial changes. IMPRESSION: No pneumothorax or pleural fluid. Worsening infiltrate in the right upper and lower lung sánchez. No pneumothorax following Port-A-Cath insertion. Underlying chronic changes. Dictated by: Dictated on workstation # [id number]
--- NOTE | 2021-12-26 15:58 | Progress Note-Post Operative ---
Post-Operative Progess Note Surgeon (s)/Him Director (s) Surgeon PERRY BETANCOURT DO Him Director: na Pre-Operative Diagnosis MDS Post-Operative Diagnosis MDS Procedure & Operative Findings Date of Procedure 12/26/21 Procedure Performed/Findings PROCEDURE: Right internal jugular port placement using ultrasound guidance. COMPLICATIONS: None. INDICATIONS: The patient is a 71 year old male with MDS. Received platelets yesterday and today due to thrombocytopaenia. Patient understands the risks and benefits of port placement and wished to proceed with the procedure. Consent was signed on the chart. PROCEDURE: The patient was taken to the operating suite, was prepped and draped in the sterile fashion. A surgical pause was performed. Ultrasound was used to locate the internal jugular vein. Once located anesthetic was infiltrated above it. Using micro-access kit, the right internal vein was accessed. Dark nonpulsatile blood was withdrawn. The wire was inserted. Fluoroscopy assured proper placement. The needle was removed. The micro-access dilator was advanced over the wire and the wire was removed. The regular wire was inserted and fluoroscopy assured proper placement. The wire was then secured. Local anesthetic was used to anesthetize from the neck for tunneling down to the right chest and for pocket creation. A 15 blade scalpel was used to make an incision over the right chest. Cautery was used to dissect down to the pectoral fascia. A pocket was created with blunt dissection. The dilator sheath was then advanced over the wire under fluoroscopy and the dilator and wire were removed. The Groshong catheter was inserted through the sheath and the sheath was then removed. The Groshong wire was removed. The catheter was then tunneled to the right chest pocket. Fluoroscopy was used to cut to length and this was then attached to the port which was then placed within the pocket. The port was then accessed without difficulty. It was then flushed with saline and then heparin. The subcutaneous tissues were then reapproximated using 3-0 Vicryl. The areas were then washed and dried. Skin Affix was placed over incision. The insertion point of the neck Skin Affix was placed over the incision. The patient tolerated the procedure well without complication and was taken to recovery room in stable condition. Chest x-ray is pending. Anesthesia Type mac c local Estimated Blood Loss Estimated blood loss (mL): minimal Specimens/Packing Specimens Removed PERRY Luz DO December 26, 2021 15:58
--- NOTE | 2021-12-26 16:24 | Diagnostic Imaging Report ---
INDICATION: Port-A-Cath placement Intraoperative fluoroscopy views obtained during Port-A-Cath placement surgery. Port is seen over the right chest with catheter in the right internal jugular vein, catheter tip overlying the low SVC. The study is otherwise limited. 2 images were obtained. 13.7 seconds of fluoroscopy time was used. IMPRESSION: Intraoperative views demonstrate Port-A-Cath placement as above. Dictated by: Dictated on workstation # [id number]
== END 2021-12-26 16:15 ==
LOC: SDC 08:45
PROVIDERS: ATTEND Surgery
DX: D46.9 Myelodysplastic syndrome, unspecified (principal); D69.6 Thrombocytopenia, unspecified; F17.210 Nicotine dependence, cigarettes, uncomplicated
CPT/HCPCS: 36561; 71045; 76000; 86850; 86900; 86901; 87081; C1788; P9035; 36415

== ENCOUNTER 2022-01-23 11:38 | Inpatient (IN) | payer MEDICARE ==
[2022-01-23] VITALS (16 sets, daily range): BP systolic 88–119; BP diastolic 52–63
[~2022-01-23] VITALS: Ht 170.2 cm; Wt 49.5 kg
[~2022-01-23 11:38] MED LIST changes: +ALLO300T2 PO; -ASPI-789 PO; +ASPI1TAB23 PO; +DILT120T3 PO; +GUAI120L56 PO; +PANT40TA52 PO
[2022-01-23] MEDS ORDERED: LIDOCAINE/EPI 2% 1:200,00 (XYLOCAINE) 10 ML VIAL ONE (12:06)
--- NOTE | 2022-01-23 12:14 | Progress Note-Pre Operative ---
Pre-Operative Progress Note H&P Reviewed The H&P was reviewed, patient examined and no changes noted. Date Seen by Provider: Jan 23, 2022 Time Seen by Provider: 12:10 Date H&P Reviewed: Jan 23, 2022 Time H&P Reviewed: 12:05 Pre-Operative Diagnosis: Perirectal abscess ANDRE HART APRN Jan 23, 2022 12:14
[2022-01-23] MEDS ORDERED: LACTATED RINGERS 1,000 ML IV PRN (12:15)
[2022-01-23] MEDS ORDERED: fentaNYL INJ 100 MCG/2 ML AMP ONE (12:17)
[2022-01-23] MEDS ORDERED: proPOfol 200 MG/20 ML (DIPRIVAN) VIAL IV ONE (12:17)
[2022-01-23] MEDS ORDERED: LIDOCAINE PF 2% 5 ML (XYLOCAINE) VIAL ONE (12:17)
[2022-01-23] MEDS ORDERED: ONDANSETRON 4 MG/2 ML (SDV) Z0FRAN ONE (12:17)
[2022-01-23 12:28] LABS: BASOPHILS # (AUTO) 0.1 10^3/uL (0.0-0.1); BASOPHILS % (AUTO) 0 % (0-10); HEMATOCRIT 21 % (40-54); MEAN CORPUSCULAR VOLUME 93 fL (80-99)
[2022-01-23 12:30] LABS: EOSINOPHILS % (AUTO) 0 % (0-10); LYMPHOCYTES # (AUTO) 1.3 10^3/uL (1.0-4.0); LYMPHOCYTES % (AUTO) 5 % (12-44); MEAN CORPUSCULAR HEMOGLOBIN 29 pg (25-34); MEAN CORPUSCULAR HGB CONC 31 g/dL (32-36); MEAN PLATELET VOLUME 11.3 fL (9.0-12.2); MONOCYTES # (AUTO) 3.1 10^3/uL (0.0-1.0); MONOCYTES % (AUTO) 13 % (0-12); NEUTROPHILS # (AUTO) 16.3 10^3/uL (1.8-7.8); NEUTROPHILS % (AUTO) 69 % (42-75); WHITE BLOOD COUNT 23.8 10^3/uL (4.3-11.0)
[2022-01-23 12:33] LABS: HEMOGLOBIN 6.6 g/dL (13.3-17.7)
[2022-01-23 12:34] LABS: PLATELET COUNT 7 10^3/uL (130-400)
[2022-01-23] MEDS ORDERED: metroNIDAZOLE 500MG/100ML IVPB 100 ML ONE (12:43)
[2022-01-23] MEDS ORDERED: ceFAZolin INJECTION 1,000 MG ONE (12:43)
[2022-01-23] MEDS ORDERED: ceFAZolin INJECTION 1,000 MG VIAL IV ONE (12:45)
[2022-01-23] MEDS ORDERED: metroNIDAZOLE 500MG/100ML IVPB 100 ML IV ONE (12:45)
[2022-01-23] MEDS ORDERED: NS IV 500 ML 500 ML IV SCH (13:00)
[2022-01-23] MEDS ORDERED: ONDANSETRON 4 MG/2 ML (SDV) Z0FRAN IVP PRN (13:00)
[2022-01-23] MEDS ORDERED: PIPERACILLIN SODIUM/TAZOBACTAM 4.5 GM in NS (IVPB) 100 ML IV NR (13:00)
[2022-01-23 13:01] LABS: ANISOCYTOSIS MODERATE; BAND NEUTROPHILS 4 %; BASOPHILS % (MANUAL) 0 %; ELLIPT/OVALOCYTES SLIGHT; EOSINOPHILS % (MANUAL) 0 %; LYMPHOCYTES % (MANUAL) 10 %; MONOCYTES % (MANUAL) 3 %; MYELOCYTES % 2 %; NEUTROPHILS % (MANUAL) 81 %
[2022-01-23 13:05] LABS: ALBUMIN 3.1 GM/DL (3.2-4.5); BILIRUBIN,TOTAL 0.8 MG/DL (0.1-1.0); CALCIUM 8.4 MG/DL (8.5-10.1); CREATININE SERUM 0.69 MG/DL (0.60-1.30); POTASSIUM 3.8 MMOL/L (3.6-5.0); TOTAL PROTEIN 5.9 GM/DL (6.4-8.2)
--- NOTE | 2022-01-23 13:33 | Progress Note-Post Operative ---
Post-Operative Progess Note Surgeon (s)/Epoxy Specialist (s) Surgeon MAICOL DAIGLE MD Epoxy Specialist: norbert becerra [employer] Pre-Operative Diagnosis Perirectal abscess Post-Operative Diagnosis left ischiorectal absess with rectal prolapse. Procedure & Operative Findings Date of Procedure 01/23/22 Procedure Performed/Findings pudendal nerve block, anal exam under anesthesia, incision and drainage left ischiorectal absess, bx anorectal tissue. Anesthesia Type general lma with pudendal nerve block. Estimated Blood Loss Estimated blood loss (mL): minimal Specimens/Packing Specimens Removed abscess, anorectal tissue. MAICOL DAIGLE MD Jan 23, 2022 13:33
[2022-01-23] MEDS ORDERED: SEVOFLURANE (ULTANE) 15 ML INHAL SOLN ONE (13:41)
--- NOTE | 2022-01-23 13:43 | HISTORY AND PHYSICAL ---
DATE OF SERVICE: ATTENDING PRIMARY CARE PHYSICIAN: Dr. Kumar Bingham and Dr. He Knox. HISTORY OF PRESENT ILLNESS: The patient is a 71-year-old male, who is known to us. He was seen in 09/2017 for a right inguinal hernia and underwent a laparoscopic right inguinal hernia repair with mesh. He was then seen in the office with a two-month history of left upper quadrant crampy abdominal pain with nausea and vomiting as well as worsening reflux. He also reported constipation, but denied any red blood per rectum nor any dark tarry stools. He did not report any hematemesis or any coffee ground emesis. He does have a history of peripheral vascular disease and underwent an abdominal aortic stent placement in 06/2018. On 01/04/2019, he underwent an EGD with biopsy and colonoscopy. Findings were reflux esophagitis stage II, moderate size hiatal hernia approximately 2.5 cm in size, moderate severity gastritis and mild chronic stage II external and internal hemorrhoids and moderate sigmoid and descending colonic diverticulosis. Biopsies were negative for H. pylori as well as negative for Roman's esophagus. On today's visit, he reports that he was referred over to us for increasing perirectal pain for the past three weeks. He does report that he has been able to fill a large lump in this area and that this has continued to get larger over time. He was recently diagnosed with myelodysplastic syndrome in November of this year and is currently seeing Dr. Knox. He was seen by him yesterday and he was noted to have a perirectal abscess and then referred over to us. He was also found to be thrombocytopenic. He denies any fever or chills. He does report that this does occur on occasion. PAST MEDICAL HISTORY: Myelodysplastic syndrome and gastroesophageal reflux disease. PAST SURGICAL HISTORY: Appendectomy at age 12, laparoscopic cholecystectomy in 2013, laparoscopic right inguinal hernia repair in 2017, and placement of a [place] port 2019. ALLERGIES: PEANUTS and SHELLFISH. MEDICATIONS: Diltiazem 120 mg, Bactrim-DS twice weekly, Protonix 40 mg daily, Zofran 4 mg p.r.n., hydrocodone/acetaminophen p.r.n., and Gas-X p.r.n. SOCIAL HISTORY: Previous for tobacco smoker, 50 plus pack years, previous alcohol. FAMILY HISTORY: Father, myocardial infarction. REVIEW OF SYSTEMS: This is a well-nourished elderly male, who is thin, in no acute distress. He is not experiencing any shortness of breath or difficulty breathing. No chest pain, palpitations or diaphoresis. No nausea, vomiting or abdominal pain. No diarrhea or constipation. No red blood per rectum. No dark tarry stools. No fever or chills. No recent inadvertent weight loss. He does report pain and swelling in the perirectal region. All other review of systems negative. PHYSICAL EXAMINATION: VITAL SIGNS: Blood pressure 98/50. Current weight is 105 pounds at 5 feet 7 inches. CHEST: Clear. Good breath sounds bilaterally. HEART: Regular and no murmurs. EXTREMITIES: No lower extremity edema. Negative Homans sign. HEENT: No scleral icterus. NECK: No cervical lymphadenopathy. ABDOMEN: Soft, nontender, and nondistended. SKIN: Warm, dry and pink. RECTAL: Upon examination, there is a large area of fluctuance with overlying redness and erythema that is painful to palpation. This does track anteriorly and is consistent with a perirectal abscess. NEUROLOGIC: Awake, alert, and oriented x3. ASSESSMENT AND PLAN: A 71-year-old male with a large symptomatic perirectal abscess. At this time, we will proceed with starting him on IV antibiotics as well as IV pain and nausea medication as needed. We will also proceed with infusion of a pack of platelets as well as scheduling him for an incision and drainage of the perirectal abscess today in the operating room. Job ID: [id number] DocumentID: [id number] Dictated Date: 01/23/2022 12:21:39 Licensed Psychologist Date: 01/23/2022 13:42:42 Dictated By: SHAYY SPRING
[2022-01-23] MEDS: HYDROcodone/APAP 5 MG/325 MG (LORTAB) TAB PO PRN ×2 (18:12→22:13)
[2022-01-23] MEDS ORDERED: PIPERACILLIN SODIUM/TAZOBACTAM 4.5 GM in NS (IVPB) 100 ML IV SCH (19:00)
[2022-01-23] MEDS: PIPERACILLIN SODIUM/TAZOBACTAM 4.5 GM in NS (IVPB) 100 ML IV SCH (21:19)
[2022-01-23] MEDS: MAGNESIUM CITRATE 300 ML BTL PO SCH (21:19)
[2022-01-23] MEDS ORDERED: AMOX-355 PO (23:44)
[2022-01-23] MEDS ORDERED: ACHD5005 PO (23:44)
--- NOTE | 2022-01-23 23:47 | Discharge Inst-Surgical ---
D/C Lap Instructions-KIDO New, Converted, or Re-Newed RX: RX on Chart Follow Up Appt in 1 week Activity as tolerated stool softeners and laxatives daily to promote very soft stools daily. sitz bath QID as well as after every bowel movement. dry gauze followed by absorptive pad BID and PRN. Regular Diet Symptoms to Report: Fever over 101 degree F, Nausea/Vomiting Infection Signs and Symptoms to report: Increased redness, Foul odor of wound, Increased drainage Bathing instructions: May shower Operative Area Clean/Dry; Keep incision clean/dry If any problems/questions: Contact your physician or go to Emergency Room MAICOL DAIGLE MD Jan 23, 2022 23:47
--- NOTE | 2022-01-24 00:27 | OPERATIVE REPORT ---
DATE OF SERVICE: 01/23/2022 ATTENDING PRIMARY CARE PHYSICIAN: Dr. Kumar Bingham. PREOPERATIVE DIAGNOSIS: Symptomatic left ischiorectal abscess. POSTOPERATIVE DIAGNOSIS: Symptomatic left ischiorectal abscess. PROCEDURE: Pudendal nerve block, anal exam under anesthesia, incision and drainage ischiorectal abscess, biopsy anorectal region. SURGEON: Mathieu Daigle MD MANAGER COMMUNITY RELATIONS: Oswaldo Yanez APRN. ANESTHESIA: General laryngeal mask airway, pudendal nerve block, as well as local. ESTIMATED BLOOD LOSS: Minimal. DISPOSITION: The patient tolerated the procedure well. INDICATIONS: The patient is a 71-year-old male with history of myelodysplastic syndrome. He has had worsening blood work and has been on a low dose chemotherapy; however, due to thrombocytopenia, had to be discontinued approximately 3 weeks ago. He continues to be thrombocytopenic and has developed a significant ischiorectal abscess along the left anus which is extremely painful. DESCRIPTION OF PROCEDURE: The patient was brought to the operating room, laid supine on the table. After adequate IV pain and sedative medications and general laryngeal mask airway intubation, the patient was placed in lithotomy and the perineum prepped and draped in standard surgical fashion. We then proceeded with a pudendal nerve block with 2% lidocaine with epinephrine approximately 1 to 2 cm bilateral below the ischial tuberosity. The anal sphincters relaxed and a self-retaining speculum placed with no fistulization identified. We then proceeded with incision and drainage of the left ischiorectal abscess using a 15 blade. Platelets were being infused simultaneously. Loculations were broken up using blunt dissection, the abscess cavity was then copiously irrigated and suctioned out and packed with a 1-inch iodoform gauze. Wound was then cleaned and covered with 4 x 4 gauze followed by ABD pad followed by mesh shorts. The patient tolerated the procedure well. We will admit him for observation and continue with IV antibiotics as well as pain control and recommend sitz baths 4 times a day as well as after every bowel movement. Job ID: [id number] DocumentID: [id number] Dictated Date: 01/23/2022 13:46:43 Hay Chopper Date: 01/24/2022 00:26:14 Dictated By: MATHIEU DAIGLE MD
[2022-01-24] MEDS: HYDROcodone/APAP 5 MG/325 MG (LORTAB) TAB PO PRN ×4 (04:46→17:31)
[2022-01-24 04:47] VITALS: BP 97/56
[2022-01-24] MEDS: PIPERACILLIN SODIUM/TAZOBACTAM 4.5 GM in NS (IVPB) 100 ML IV SCH ×2 (04:47→13:08)
[2022-01-24 06:21] LABS: BASOPHILS # (AUTO) 0.1 10^3/uL (0.0-0.1); EOSINOPHILS % (AUTO) 0 % (0-10); HEMATOCRIT 21 % (40-54); MEAN CORPUSCULAR HEMOGLOBIN 30 pg (25-34); MEAN CORPUSCULAR HGB CONC 32 g/dL (32-36); NEUTROPHILS # (AUTO) 10.3 10^3/uL (1.8-7.8); NEUTROPHILS % (AUTO) 65 % (42-75)
[2022-01-24 06:22] LABS: HEMOGLOBIN 6.8 g/dL (13.3-17.7); WHITE BLOOD COUNT 15.8 10^3/uL (4.3-11.0)
[2022-01-24 06:23] LABS: BASOPHILS % (AUTO) 1 % (0-10); LYMPHOCYTES % (AUTO) 7 % (12-44); MEAN CORPUSCULAR VOLUME 92 fL (80-99); MEAN PLATELET VOLUME 10.6 fL (9.0-12.2); MONOCYTES # (AUTO) 2.2 10^3/uL (0.0-1.0); MONOCYTES % (AUTO) 14 % (0-12); PLATELET COUNT 38 10^3/uL (130-400)
[2022-01-24 06:33] LABS: ALBUMIN 2.7 GM/DL (3.2-4.5)
[2022-01-24 06:34] LABS: POTASSIUM 3.4 MMOL/L (3.6-5.0)
[2022-01-24 06:35] LABS: CALCIUM 7.6 MG/DL (8.5-10.1)
[2022-01-24 06:38] LABS: BILIRUBIN,TOTAL 0.9 MG/DL (0.1-1.0)
[2022-01-24 06:40] LABS: CREATININE SERUM 0.63 MG/DL (0.60-1.30)
[2022-01-24 07:54] VITALS: BP 101/58
[2022-01-24] MEDS: MAGNESIUM CITRATE 300 ML BTL PO SCH (08:42)
[2022-01-24] MEDS ORDERED: PANTOPRAZOLE 40 MG (PROTONIX) VIAL IV SCH (09:00)
[2022-01-24] MEDS: fentaNYL INJ 100 MCG/2 ML AMP IVP PRN ×2 (11:36→16:02)
[2022-01-24 12:14] VITALS: BP 90/53
--- NOTE | 2022-01-24 12:28 | Progress Note ---
Subjective Date Seen by a Provider: Jan 24, 2022 Time Seen by a Provider: 11:50 Subjective/Events-last exam Patient seen with Dr. Alvarado. Patient reports doing well. Denies any f ever/chills. Reports amber-rectal pain is improved. Reports voided this morning. Objective Exam Vital Signs Date Time Temp Pulse Resp B/P (MAP) Pulse Ox O2 Delivery O2 Flow Rate FiO2 01/24/22 12:14 36.7 89 18 90/53 (65) 94 Room Air 01/24/22 08:15 93 Room Air 01/24/22 07:54 36.6 88 16 101/58 (72) 95 Room Air 01/24/22 04:47 37.2 92 18 97/56 (70) 96 Room Air 01/23/22 23:18 36.7 93 16 95/53 (67) 97 Room Air 01/23/22 22:09 37.1 95 18 108/63 96 Room Air 01/23/22 20:13 37.3 92 18 98/60 97 Room Air 01/23/22 20:00 93 Room Air 01/23/22 19:47 37.4 96 18 100/58 96 Room Air 01/23/22 19:30 37.3 95 18 97/57 97 01/23/22 19:19 36.7 97 18 88/54 (65) 96 Room Air 01/23/22 16:53 99 Room Air 01/23/22 16:42 36.7 99 18 97/56 98 01/23/22 16:26 37.0 100 16 97/52 97 01/23/22 15:36 36.3 102 16 97/52 (67) 94 Room Air 01/23/22 14:40 Room Air 01/23/22 14:30 36.5 16 112/58 (76) 98 Room Air 01/23/22 14:20 16 116/58 (77) 100 OxyMask 10 01/23/22 14:10 14 112/56 (74) 100 OxyMask 10 01/23/22 14:10 OxyMask 10 01/23/22 14:00 16 109/55 (73) 100 OxyMask 10 01/23/22 13:51 16 107/54 (71) 100 OxyMask 10 01/23/22 13:47 36.3 14 105/54 (71) 100 OxyMask 10 01/23/22 13:47 OxyMask 10 I & O 01/24/22 07:00 Intake Total 1420 ml Output Total 425 ml Balance 995 ml Capillary Refill : General Appearance: No Apparent Distress, WD/WN, Thin Neck: Normal Inspection, Supple Respiratory: No Accessory Muscle Use, No Respiratory Distress Cardiovascular: Regular Rate, Rhythm, No Edema Gastrointestinal: normal bowel sounds, non tender, soft, other (Amber-rectal abscess incision with packing in place. Mild redness/erythema. Painful to palpation. No active drainage.) Extremity: Normal Inspection, Normal Range of Motion Neurologic/Psychiatric: Alert, Oriented x3 Skin: Normal Color, Warm/Dry Results Lab Laboratory Tests 01/24/22 06:02: White Blood Count 15.8H, Red Blood Count 2.28L, Hemoglobin 6.8*L, Hematocrit 21L , Mean Corpuscular Volume 92, Mean Corpuscular Hemoglobin 30, Mean Corpuscular Hemoglobin Concent 32, Red Cell Distribution Width 16.3H, Platelet Count 38*L, Mean Platelet Volume 10.6, Immature Granulocyte % (Auto) 14, Neutrophils (%) (Auto) 65, Lymphocytes (%) (Auto) 7L, Monocytes (%) (Auto) 14H, Eosinophils (%) (Auto) 0, Basophils (%) (Auto) 1, Neutrophils # (Auto) 10.3H, Lymphocytes # (Auto) 1.0, Monocytes # (Auto) 2.2H, Eosinophils # (Auto) 0.0, Basophils # (Auto) 0.1, Immature Granulocyte # (Auto) 2.2H, Percent Immature Platelet Fraction 1.9, Sodium Level 133L, Potassium Level 3.4L, Chloride Level 98, Carbon Dioxide Level 24, Anion Gap 11, Blood Urea Nitrogen 11, Creatinine 0.63, Estimat Glomerular Filtration Rate 101, BUN/Creatinine Ratio 17, Glucose Level 81, Calcium Level 7.6L, Corrected Calcium 8.6, Total Bilirubin 0.9, Aspartate Amino Transf (AST/SGOT) 13, Alanine Aminotransferase (ALT/SGPT) 13, Alkaline Phosphatase 57, Total Protein 5.0L, Albumin 2.7L Microbiology 01/23/22 Gram Stain - Final, Resulted 01/23/22 Anaerobic Culture, Resulted Pending 01/23/22 Surgical Culture, Resulted Pending Assessment/Plan Assessment/Plan Assess & Plan/Chief Complaint A 71 year old male with a perirectal abscess, myledysplastic syndrome, thrombocytopenia, anemia VSS WBC down to 15.8 Hgb 6.8 Plat 38 Will transfuse another unit of PRBCs Abscess packing changed. Will DC patient home after transfusion and he is scheduled to follow up with his oncologist Wednesday Will DC home with abx and pain medication. ANDRE HART APRN Jan 24, 2022 12:28
[2022-01-24] MEDS ORDERED: NS IV 500 ML 500 ML IV SCH (12:30)
[2022-01-24 13:24] VITALS: BP 94/52
[2022-01-24 13:42] VITALS: BP 91/54
[2022-01-24 15:30] VITALS: BP 89/52
--- NOTE | 2022-01-24 20:49 | Anesthesia-General Post-Op ---
General Patient Condition Mental Status/LOC: Same as Preop Cardiovascular: Satisfactory Nausea/Vomiting: Absent Respiratory: Satisfactory Pain: Controlled Complications: Absent Post Op Complications Complications None Follow Up Care/Instructions Patient Instructions None needed. Anesthesia/Patient Condition Patient Condition Patient is doing well, no complaints, stable vital signs, no apparent adverse anesthesia problems. No complications reported per nursing. VAL FLORES CRNA Jan 24, 2022 20:49
== END 2022-01-24 17:55 | disposition home or self-care (01) | DRG 395 ==
LOC: 4TH 11:38 → EDSTATUS 14:30
PROVIDERS: ADMIT Surgery; ATTEND Surgery
PROC: 0J9B0ZX Drainage of Perineum Subcutaneous Tissue and Fascia, Open Approach, Diagnostic (ICD-10-PCS; principal; 2022-01-23 12:47)
DX: K61.39 Other ischiorectal abscess (principal); D46.9 Myelodysplastic syndrome, unspecified; K62.3 Rectal prolapse; D69.6 Thrombocytopenia, unspecified; K21.9 Gastro-esophageal reflux disease without esophagitis; Z87.891 Personal history of nicotine dependence
CPT/HCPCS: 36415; 80053; 85007; 85025; 85027; 86850; 86900; 86901; 86920; 87070; 87075; 87077; 87081; 87205

== ENCOUNTER → 2022-01-28 | Outpatient (CLI) | payer MEDICARE ==
[~2022-01-28] MED LIST changes: +ACHD5005 PO; +AMOX-355 PO
== END ==
LOC: CARD 14:25
PROVIDERS: ATTEND Nurse Practitioner Family
DX: I48.0 Paroxysmal atrial fibrillation (principal)
CPT/HCPCS: 93225; 93226

== ENCOUNTER 2022-05-14 12:05 | Inpatient (IN) | payer MEDICARE ==
[2022-05-14] VITALS (19 sets, daily range): BP systolic 64–106; BP diastolic 42–62
[~2022-05-14] VITALS: Ht 167.7 cm; Wt 54.8 kg
--- NOTE | 2022-05-14 12:54 | History & Physical-Hospitalist ---
History of Present Illness HPI/Chief Complaint Pt is a 71yoM with a PMH of MDS who presented to outside ER due to chest pain and subjective fever. He reports His symptoms started roughly a week ago. He was being treated for pneumonia by his primary oncologist. He had 1 more day left of his [place]. He continued to worsen and so his decided to bring him in for evaluation. In the emergency room at [facility] he was found to have a white blood cell count of 88 with otherwise stable labs given his myelodysplastic syndrome. Chest x-ray revealed left upper lobe pneumonia with a lactic acidosis of 2.5. He was mildly hypotensive as well on arrival. Source: patient Date Seen 05/14/22 Time Seen by a Provider: 13:31 Attending Physician Kumar Hobbs MD PCP Admitting Physician: Melina Knight MD Attending Physician: Melina Knight MD Referring Physician Date of Admission Home Medications & Allergies Home Medications Reviewed patient Home Medication Reconciliation performed by pharmacy medication reconciliations auto repair technician and/or nursing. Patients Allergies have been reviewed. Allergies Allergies Coded Allergies peanut (Verified Allergy, Unknown, 01/23/22) shellfish derived (Verified Allergy, Unknown, 01/23/22) Past Qqtbkfn-Dhtjmy-Clbyqa Hx Immunizations Up To Date Date of Influenza Vaccine: May 27, 2021 First/Initial COVID19 Vaccinat: October 2020 Second COVID19 Vaccination Rei: November 2020 Tetanus Booster (TDap): Unknown PED Vaccines UTD: No Seasonal Allergies Seasonal Allergies: No Current Status Primary Language: Italian Past Medical History Surgeries: Abdominal, Appendectomy, Gallbladder, Vascular Surgery COPD Currently Using CPAP: No Currently Using BIPAP: No Atrial Fibrillation Sexually Transmitted Disease: No HIV/AIDS: No Abdominal Hernia, Gastroesophageal Reflux, Chronic Constipation, Diverticulosis, Hemorrhoids Loss of Vision: Bilateral Hearing Impairment: Denies Blood Disorders: Yes (THROBOCYTOPENIA, MDS) Adverse Reaction/Blood Tranf: No (N/A) Review of Systems Constitutional: fever (subjective) EENTM: no symptoms reported Respiratory: see HPI Cardiovascular: see HPI Gastrointestinal: no symptoms reported Genitourinary: no symptoms reported Musculoskeletal: no symptoms reported Skin: no symptoms reported Psychiatric/Neurological: No Symptoms Reported Physical Exam Physical Exam Vital Signs Vital Signs - First Documented 05/14/22 13:56 Pulse Ox 95 O2 Delivery Room Air O2 Flow Rate 0.00 Capillary Refill : Height, Weight, BMI Height: 5'7.00" Weight: 125lbs. 0.0oz. 56.898042zr; 17.08 BMI Method: General Appearance: No Apparent Distress, WD/WN, Thin HEENT: PERRL/EOMI, Moist Mucous Membranes Neck: Normal Inspection, Supple Respiratory: Lungs Clear, No Accessory Muscle Use, No Respiratory Distress Cardiovascular: Regular Rate, Rhythm, No JVD, No Murmur Gastrointestinal: Normal Bowel Sounds, Non Tender, Soft Extremity: Normal Capillary Refill, No Calf Tenderness, No Pedal Edema Neurologic/Psychiatric: Alert, Oriented x3, Normal Mood/Affect Skin: Normal Color, Warm/Dry Results Results/Procedures Labs Patient resulted labs reviewed. Assessment/Plan Admission Diagnosis Severe Sepsis Admission Status: Inpatient Order (span 2 midnights) Reason for Inpatient Admission: see below Assessment and Plan Severe Sepsis Pneumonia Left upper lobe infiltrate noted on CXr at OSH tachy with leukocytosis Lactic 2.5 there Received Cefepime there Received fluid bolus at OSH as well [place] Cefepime Await cultures MAT protocol MDS WBC 88 Here in January is was 15 with an active infection Follows with Dr Knox, consulted appreciate recs Diagnosis/Problems Diagnosis/Problems (1) Myelodysplastic syndrome (2) Thrombocytopenia (3) Severe sepsis (4) Paroxysmal A-fib (5) COPD (chronic obstructive pulmonary disease) Copy Copies To 1: KUMAR HOBBS MD, KATELYN M MD May 14, 2022 12:54
[2022-05-14] MEDS: NS IV 1000 ML 1,000 ML IV SCH ×2 (14:26→21:16)
[2022-05-14] MEDS ORDERED: NS IV 1000 ML 1,000 ML IV ONE ×2 (15:15→21:15)
[2022-05-14] MEDS: IBUPROFEN 600 MG (MOTRIN) TAB PO PRN (16:20)
--- NOTE | 2022-05-14 17:01 | Diagnostic Imaging Report ---
PROCEDURE: US left lower extremity venous. TECHNIQUE: Multiple real-time grayscale images were obtained over the left lower extremity in various projections. Additional duplex Doppler and color Doppler images were also obtained. INDICATION: Left lower extremity swelling. COMPARISON: None. FINDINGS: The left common femoral vein, femoral vein, deep femoral vein, and popliteal vein are normal in appearance. These vessels show normal compressibility, color flow and doppler augmentation. The visualized deep calf veins demonstrate no distinct intraluminal thrombus. IMPRESSION: 1. No sonographic evidence of deep venous thrombosis in the left lower extremity. Dictated by: Dictated on workstation # [id number]
[2022-05-14] MEDS: CEFEPIME INJECTION 1,000 MG in NS (IVPB) 50 ML IV SCH (18:01)
[2022-05-14] MEDS ORDERED: NS IV 500 ML 500 ML IV PRN (22:45)
[2022-05-14] MEDS: NOREPINEPHRINE 8 MG/250 ML 250 ML IV SCH (22:59)
--- NOTE | 2022-05-14 23:42 | Tele-ICU Consult ---
History of Present Illness History of Present Illness Date Seen by Provider: May 14, 2022 Time Seen by Provider: 23:34 History of Present Illness eICU admit note/consult 71 yo M with myelodysplastic syndrome admitted to MICU with PNA/sepsis, [place] febrile and has some CP. Had been taking azithromycin as OP. At OSH had WBC 88k, CXR showed a FLORIN PNA, had LA of 2.5 which has gone down to 1.37. Troponin 0.039. BP was low on arrival to ED and was started on IV levophed, Not in resp distress, on room air. Was given 2 l at OSH, received more here.Plt count at OSH 26k, no sign of bleeding or brusing, Doppler legs normal, CXR not available for review but read as FLORIN PNA PMH COPD, diverticulosis, Allergies and Home Medications Allergies Coded Allergies: peanut (Verified Allergy, Unknown, 01/23/22) shellfish derived (Verified Allergy, Unknown, 01/23/22) Home Medications Allopurinol 300 Mg Tablet, 300 MG PO DAILY, (Reported) Amoxicillin/Potassium Clav 500 Mg-125 Mg Tablet, 1 EACH PO BID Prescribed by: MAICOL DAIGLE on 01/23/22 2344 Diltiazem HCl 120 Mg Tablet, 120 MG PO DAILY, (Reported) Guaifenesin/Codeine Phosphate 10 Mg-100 Mg/5 Ml Liquid, 120 ML PO Q6H, (Reported) Hydrocodone/Acetaminophen 5 Mg-325 Mg Tablet, 1 TAB PO Q4H PRN for PAIN-MODERATE (5-7) Prescribed by: MAICOL DAIGLE on 01/23/22 2344 Pantoprazole Sodium 40 Mg Tablet.dr, 40 MG PO DAILY, (Reported) Past Medical/Social/Family Hx Immunizations Up To Date Influenza Vaccine Up-to-Date: Yes; Up-to-Date First/Initial COVID19 Vaccinat: October 2020 Second COVID19 Vaccination Rei: November 2020 Tetanus Booster (TDap): Less Than 5 Years Current Status Advance Directives: Yes Advance Directive Location: Copy from prev record Communicates: Verbally Primary Language: Malaysian Preferred Spoken Language: Malaysian Is interpretation needed?: No Sensory deficits: Hearing impairment Implanted or Applied Medical D: Port-a-cath, Stents Review of Systems Constitutional: see HPI EENTM: see HPI Respiratory: see HPI Cardiovascular: see HPI Gastrointestinal: see HPI Genitourinary: see HPI Musculoskeletal: see HPI Skin: see HPI Psychiatric/Neurological: See HPI Focused Exam Lactate Level 05/14/22 14:29: Lactic Acid Level 2.51*H 05/14/22 16:40: Lactic Acid Level 1.37 Height, Weight, BMI Height: 5'7.00" Weight: 125lbs. 0.0oz. 56.352008sl; 19.34 BMI Method: Exam Exam Patient acknowledged, consented, and participated in this virtual visit which was conducted using real time audio/video Vital Signs Date Time Temp Pulse Resp B/P (MAP) Pulse Ox O2 Delivery O2 Flow Rate FiO2 05/14/22 22:59 96 81/50 05/14/22 22:58 100 05/14/22 22:50 100 18 81/50 (60) 94 Room Air 05/14/22 22:19 101 27 81/54 (63) 97 Room Air 05/14/22 22:00 92 22 69/45 (53) 95 Room Air 05/14/22 21:36 96 28 66/44 (51) 95 Room Air 05/14/22 21:00 93 18 69/47 (54) 94 Room Air 05/14/22 20:39 87 18 64/42 (49) 93 Room Air 05/14/22 20:38 93 16 69/45 (53) 93 Room Air 05/14/22 20:00 Room Air 05/14/22 19:01 104 05/14/22 19:00 103 15 91/44 (60) 98 Room Air 05/14/22 18:00 37.0 105 15 96/44 (61) 92 Room Air 05/14/22 17:30 37.8 108 16 98/48 (65) 92 05/14/22 17:00 38.6 112 19 99/44 (62) Room Air 05/14/22 16:45 38.3 113 20 103/49 (67) 92 Room Air 05/14/22 16:30 38.6 112 18 100/51 (67) Room Air 05/14/22 16:15 38.7 115 19 98/53 (68) 92 Room Air 05/14/22 16:00 38.5 116 16 103/57 (72) 93 Room Air 05/14/22 16:00 Room Air 05/14/22 16:00 38.5 116 16 103/57 (72) 93 05/14/22 15:45 38.3 118 18 101/62 (75) 94 Room Air 05/14/22 15:30 38.4 116 16 106/59 (75) 94 Room Air 05/14/22 15:15 38.8 115 17 99/54 (69) 96 Room Air 05/14/22 13:56 95 Room Air 0.00 05/14/22 13:15 104 Height & Weight Height: 5'7.00" Weight: 125lbs. 0.0oz. 56.939313jq; 19.34 BMI Method: General Appearance: No Apparent Distress, WD/WN, Thin HEENT: PERRL/EOMI, Moist Mucous Membranes Neck: Normal Inspection, Supple Respiratory: Lungs Clear, No Accessory Muscle Use, No Respiratory Distress Cardiovascular: Regular Rate, Rhythm, No JVD, No Murmur Capillary Refill: Less Than 3 Seconds Gastrointestinal: normal bowel sounds, non tender Extremity: Normal Capillary Refill, No Calf Tenderness, No Pedal Edema Neurologic/Psychiatric: Alert, Oriented x3, Normal Mood/Affect Skin: Normal Color, Warm/Dry Assessment/Plan Assessment/Plan Sepsis, PNA FLORIN, will continue on IV Cefepime, low plt count-from chemo? continue IVF, pressors, abx, await blood culture results done at OSH yesterday, will repeat will also get EKG due to CP Critical Care: Critically Ill Patient Time spent with patient (mins): 30 SHANNON MCCLURE MD May 14, 2022 23:42
[2022-05-15] VITALS (15 sets, daily range): BP systolic 58–113; BP diastolic 31–101
[2022-05-15] MEDS: CEFEPIME INJECTION 1,000 MG in NS (IVPB) 50 ML IV SCH ×2 (00:03→06:44)
[2022-05-15] MEDS: NS IV 1000 ML 1,000 ML IV SCH ×3 (00:04→15:30)
[2022-05-15] MEDS: IBUPROFEN 600 MG (MOTRIN) TAB PO PRN (00:06)
[2022-05-15 04:55] LABS: EOSINOPHILS % (AUTO) 0 % (0-10)
[2022-05-15 04:57] LABS: BASOPHILS # (AUTO) 0.8 10^3/uL (0.0-0.1); BASOPHILS % (AUTO) 1 % (0-10); EOSINOPHILS # (AUTO) 0.4 10^3/uL (0.0-0.3); HEMATOCRIT 22 % (40-54); LYMPHOCYTES # (AUTO) 28.6 10^3/uL (1.0-4.0); LYMPHOCYTES % (AUTO) 22 % (12-44); MEAN CORPUSCULAR HEMOGLOBIN 29 pg (25-34); MEAN CORPUSCULAR HGB CONC 30 g/dL (32-36); MEAN CORPUSCULAR VOLUME 97 fL (80-99); MEAN PLATELET VOLUME 11.9 fL (9.0-12.2); MONOCYTES # (AUTO) 36.7 10^3/uL (0.0-1.0); MONOCYTES % (AUTO) 28 % (0-12); NEUTROPHILS # (AUTO) 35.9 10^3/uL (1.8-7.8); NEUTROPHILS % (AUTO) 27 % (42-75)
[2022-05-15 05:07] LABS: HEMOGLOBIN 6.5 g/dL (13.3-17.7); PLATELET COUNT 24 10^3/uL (130-400); WHITE BLOOD COUNT 131.4 10^3/uL (4.3-11.0)
[2022-05-15 05:19] LABS: ALBUMIN 2.9 GM/DL (3.2-4.5); BILIRUBIN,TOTAL 0.9 MG/DL (0.1-1.0); CALCIUM 7.4 MG/DL (8.5-10.1); CREATININE SERUM 1.47 MG/DL (0.60-1.30); MAGNESIUM 1.2 MG/DL (1.6-2.4); PHOSPHORUS 2.8 MG/DL (2.3-4.7); POTASSIUM 2.9 MMOL/L (3.6-5.0); TOTAL PROTEIN 5.5 GM/DL (6.4-8.2)
[2022-05-15] MEDS ORDERED: ALPRAZolam 1 MG (XANAX) TAB PO PRN (05:30)
[2022-05-15] MEDS ORDERED: ALPRAZolam 0.5 MG (XANAX) TAB ONE (05:33)
[2022-05-15] MEDS ORDERED: RT-ALBUTEROL/IPRATROPIUM 3 ML (DUONEB) VIAL ONE (05:42)
[2022-05-15] MEDS ORDERED: RT-ALBUTEROL SULF 2.5 MG/3 ML PRE-MIX VIAL ONE (05:42)
[2022-05-15] MEDS ORDERED: methylPREDNISolone 125 MG (Solu-MEDROL) VIAL IVP ONE (05:45)
[2022-05-15] MEDS ORDERED: methylPREDNISolone 125 MG (Solu-MEDROL) VIAL ONE (05:57)
[2022-05-15] MEDS ORDERED: MAGNESIUM 1 GM/100 ML IVPB 100 ML IV SCH (06:00)
[2022-05-15] MEDS ORDERED: RT-ALBUTEROL SULF 2.5 MG/3 ML PRE-MIX VIAL INH ONE (06:00)
[2022-05-15] MEDS ORDERED: POTASSIUM CL 10MEQ/50ML IVPB 50 ML IV SCH (06:00)
[2022-05-15] MEDS ORDERED: KCL 20 MEQ TAB (K-DUR) PO SCH (06:00)
[2022-05-15 06:07] LABS: ABG BASE EXCESS -20.4 MMOL/L (-2.5-2.5); ABG OXYGEN SATURATION 94 % (94-100); ABG PCO2 31 MMHG (35-45); ABG PO2 102 MMHG (79-93)
[2022-05-15] MEDS: MAGNESIUM 1 GM/100 ML IVPB 100 ML IV SCH ×2 (06:09→08:37)
--- NOTE | 2022-05-15 06:11 | Tele-ICU Progress Note ---
Progress Note Called to assess respiratory distress and anxiety. Patient with significant work of breathing, tachypnea and almost gasping respiration. Worsened with minimal exertion. It is difficult to differentiate, but I believe this patient has primary respiratory distress causing anxiety rather than a panic attack causing respiratory distress. Hold off on benzo pending respiratory work up, supressing the respiratory drive at this point may be detrimental. - WBC increased from 88 to 136. Recommend onc consult, may need treatment. Concerns for leukostasis. Also concerning that MDS may have progressed to kyle kemia. - solumedrol - nebs - bipap - I do have some concerns for fluid overload, but also concerned that diuresis might further increase blood viscocity. BiPap should provide similar preload reduction without alteration of fluid components. - bicarb noted to be 15, prior not available. Anion gap also 15. Will send ABG for further eval. - satat cxr ordered - HR 140, most likely secondary to respiratory insufficiency - Hg noted to be 6.5, similar to last January but down from 7.5 at [place]. No transfusion at this time due to concerns for leukostasis/hyperviscosity Update: BiPap initiated with significant improvement in work of breathing, tachypnea and resp distress. Anxiety also improved. HR improved from 140 to 120. ABG resulted 7.//8. Continue BiPap to help with compensatory efforts, bicarb 100 meq IVP now, then gtt 150 meq@150 cc/hr Now that respiratory status has improved, RN will call for onc consult for hopefully definitive therapy. Currently doing well, but will use precedex if needed to tolerate bipap. Focused Exam Lactate Level 05/14/22 04:43: Lactic Acid Level 1.86 05/14/22 14:29: Lactic Acid Level 2.51*H 05/14/22 16:40: Lactic Acid Level 1.37 Height, Weight, BMI Height: 5'7.00" Weight: 125lbs. 0.0oz. 56.423756qe; 19.34 BMI Method: CELY BALLARD MD May 15, 2022 06:11
[2022-05-15 06:13] LABS: ABG PH 7.04 (7.37-7.43); ALLENS TEST YES-POS; INSPIRED O2 30% BIPAP; PATIENT TEMP 36.9; VENTILATOR NO
--- NOTE | 2022-05-15 06:25 | Diagnostic Imaging Report ---
INDICATION: Dyspnea AP view of the chest is obtained with comparison made to the study of earlier in the day. There has been mild overall worsening of bilateral mixed interstitial and alveolar densities throughout the lungs. Right anterior chest wall port remains in stable position. There is no pneumothorax. There is mild blunting of left costophrenic sulcus. IMPRESSION: Significant worsening of diffuse bilateral edema and/or pneumonia with small amount of left pleural fluid. Dictated by: Dictated on workstation # [id number]
[2022-05-15] MEDS ORDERED: SODIUM BICARB 8.4% 50 MEQ/50 ML (ABBOTT) SYR IV ONE (06:30)
[2022-05-15] MEDS: POTASSIUM CL 10MEQ/50ML IVPB 50 ML IV SCH ×5 (07:49→11:38)
--- NOTE | 2022-05-15 07:50 | Diagnostic Imaging Report ---
INDICATION: Pneumonia AP view of the chest is obtained with comparison made to study of 12/26/2021 There has been mild overall worsening of mixed interstitial and alveolar densities throughout the lungs. There is no pneumothorax or significant pleural fluid. Right anterior chest wall port remains in place. IMPRESSION: Slight overall worsening of diffuse edema and/or pneumonitis throughout the lungs. Dictated by: Dictated on workstation # [id number]
[2022-05-15] MEDS ORDERED: ALPRAZolam 0.5 MG (XANAX) TAB PO PRN (08:15)
[2022-05-15] MEDS: SODIUM BICARBONATE 8.4% VIAL 150 MEQ in WATER FOR INJECTION, STERILE 1,000 ML IV SCH ×2 (08:24→16:09)
[2022-05-15] MEDS ORDERED: fentaNYL INJ 100 MCG/2 ML AMP ONE ×2 (08:41→16:05)
[2022-05-15] MEDS: fentaNYL INJ 100 MCG/2 ML AMP IVP PRN ×3 (08:50→16:37)
--- NOTE | 2022-05-15 09:12 | Progress Note - Hospitalist ---
Subjective HPI/CC On Admission Date Seen by Provider: May 15, 2022 Time Seen by Provider: 08:40 Pt is a 71yoM with a PMH of MDS who presented to outside ER due to chest pain and subjective fever. He reports His symptoms started roughly a week ago. He was being treated for pneumonia by his primary oncologist. He had 1 more day left of his [place]. He continued to worsen and so his decided to bring him in for evaluation. In the emergency room at [place] he was found to have a white blood cell count of 88 with otherwise stable labs given his myelodysplastic syndrome. Chest x-ray revealed left upper lobe pneumonia with a lactic acidosis of 2.5. He was mildly hypotensive as well on arrival. Subjective/Events-last exam Pt transferred to the ER overnight due to hypotension and worsening respiratory status. Discussed with patient and family the mutiple medical issues impacting him currently and how treatment for some counteracts treatment for the others. WBC very high. Blood pressure low but getting fluid overloaded so will have to be careful with lasix. He also had been refusing a catheter overnight but now agreeable. He has been intermittently complaining of chest pain as well. They expressed understanding of severity of illness. ALl questions answered. Focused Exam Lactate Level 05/14/22 04:43: Lactic Acid Level 1.86 05/14/22 14:29: Lactic Acid Level 2.51*H 05/14/22 16:40: Lactic Acid Level 1.37 Objective Exam Vital Signs Vital Signs Date Time Temp Pulse Resp B/P (MAP) Pulse Ox O2 Delivery O2 Flow Rate FiO2 05/15/22 10:39 118 30 100 30.00 05/15/22 10:00 93/57 (69) NIV Bilevel 05/14/22 18:00 37.0 Capillary Refill : Less Than 3 Seconds General Appearance: Anxious, Moderate Distress (appears uncomfortable), Thin Respiratory: No Accessory Muscle Use, Crackles (bases), Decreased Breath Sounds; No Wheezing Cardiovascular: No Murmur, Tachycardia Gastrointestinal: Normal Bowel Sounds, Non Tender, Soft Extremity: Pedal Edema Neurologic/Psychiatric: Alert, Oriented x3 Skin: Normal Color, Warm/Dry Results/Procedures Lab Laboratory Tests 05/15/22 04:22 05/15/22 04:43 Patient resulted labs reviewed. Assessment/Plan Assessment and Plan Assess & Plan/Chief Complaint Septic Shock Pneumonia Worsening CXR Lactic acidosis resolved Received Cefepime there Received fluid bolus at OSH as well [place] Cefepime Await cultures MAT protocol MDS WBC up to 131 this AM Discusse astrid Knox who reviewed smear and states this is not AML but a leukemoid reaction- states he does not need transfer or chemo at this time for it and patient has done this in the past with infection Follows with Dr Knox, consulted appreciate recs 2 units of pRBCs for anemia, goal >8 Chest pain Elevated troponin - type II LA Discussed with Dr Foster who states other illnes preclude treatment for cardiac cause if that were the case but he does not think this is cadiac in nature EKG done without evidence of acute LA Troponin stable on check yesterday with abeba labs Critical Care Critically Ill Patient Diagnosis/Problems Diagnosis/Problems (1) Myelodysplastic syndrome (2) Thrombocytopenia (3) Severe sepsis (4) Paroxysmal A-fib (5) COPD (chronic obstructive pulmonary disease) CARRIE CAMARA MD May 15, 2022 09:12
[2022-05-15] MEDS ORDERED: FUROSEMIDE 40 MG/4 ML INJ (LASIX) IVP ONE ×2 (09:15)
[2022-05-15] MEDS ORDERED: NS IV 500 ML 500 ML IV SCH ×2 (09:15)
[2022-05-15 09:39] LABS: BAND NEUTROPHILS 6 %; LYMPHOCYTES % (MANUAL) 5 %; MONOCYTES % (MANUAL) 41 %; NEUTROPHILS % (MANUAL) 30 %; NUCLEATED RED BLOOD CELLS 3
[2022-05-15 09:40] LABS: ANISOCYTOSIS MARKED; BURR CELLS SLIGHT; ELLIPT/OVALOCYTES SLIGHT; HELMET/BITE CELLS SLIGHT; HYPOCHROMASIA MODERATE; METAMYELOCYTES % 9 %; POIKILOCYTOSIS MODERATE
[2022-05-15] MEDS ORDERED: fentaNYL INJ 100 MCG/2 ML AMP IVP PRN ×3 (10:15→17:00)
--- NOTE | 2022-05-15 10:20 | Consultation-Cardiology ---
HPI-Cardiology Cardiology Consultation: Date of Consultation 05/15/22 Time Seen by a Provider: 10:00 Date of Admission Attending Physician Kumar Bingham MD Admitting Physician Admitting Physician: Melina Knight MD Attending Physician: Melina Knight MD Consulting Physician EMMY BRYANT MD, MA, FACP, FACC, FSCAI, CCDS Physician requesting Card consult: Dr Knight HPI: Chief Complaint: Reason for consultation: Chest pain 71 yo man with h/o MDS admitted with sepsis and hypoxia who has been having cp continuously for more than [address] Knight asked us to see him. He is on BiPAP at the time of this eval. He states discomfort is much improved at this time (mild residual discomfort of chest, back and body). Shortness of breath present but better. Gen malaise and weakness. No palp or syncope. No swelling Review of Systems-Cardiology Review of Systems Constitutional: malaise, tiredness, weight loss Eyes: No vision change Ears/Nose/Throat: No ear discharge, No nasal drainage, No recent hearing loss Respiratory: As described under HPI Cardiovascular: As described under HPI Gastrointestinal: No diarrhea, No nausea, No vomiting Genitourinary: No dysuria, No hematuria, No urine frequency changes Musculoskeletal: back pain Skin: No rash, No ulcerations Psychiatric/Neurological: No seizure, No focal weakness, No syncope [id number]-Sljnzi Hx Patient Social History 2nd Hand Smoke Exposure: Yes Have you traveled recently?: No Immunizations Up To Date Tetanus Booster (TDap): Unknown Date of Influenza Vaccine: May 27, 2021 Past Medical History PMH As described under Assessment. Family Medical History Family Medical History: Reports father passed from ID at age 65 Allergies and Home Medications Allergies Coded Allergies: peanut (Verified Allergy, Unknown, 01/23/22) shellfish derived (Verified Allergy, Unknown, 01/23/22) Patient Home Medication List Home Medication List Reviewed: Yes Allopurinol (Allopurinol) 300 Mg Tablet, 300 MG PO DAILY, (Reported) Entered as Reported by: ADA SMALL on 12/26/21 1156 Amoxicillin/Potassium Clav (Augmentin 500-125 Tablet) 500 Mg-125 Mg Tablet, 1 EACH PO BID Prescribed by: MAICOL ALVARADO on 01/23/22 2574 Diltiazem HCl (Diltiazem HCl) 120 Mg Tablet, 120 MG PO DAILY, (Reported) Entered as Reported by: ADA SMALL on 12/26/21 1151 Guaifenesin/Codeine Phosphate (Codeine-Guaifen 10-100 mg/5 ml) 10 Mg-100 Mg/5 Ml Liquid, 120 ML PO Q6H, (Reported) Entered as Reported by: ADA SMALL on 12/26/21 1156 Hydrocodone/Acetaminophen (Hydrocodone-Acetamin 5-325 mg) 5 Mg-325 Mg Tablet, 1 TAB PO Q4H PRN for PAIN-MODERATE (5-7) Prescribed by: MAICOL ALVARADO on 01/23/22 2344 Pantoprazole Sodium (Pantoprazole Sodium) 40 Mg Tablet.dr, 40 MG PO DAILY, (Reported) Entered as Reported by: ADA SMALL on 12/26/21 1156 Physical Exam-Cardiology Physical Exam Vital Signs/I&O 05/14/22 05/14/22 05/14/22 05/14/22 22:19 22:50 22:58 22:59 Pulse 101 100 100 96 Resp 27 18 B/P (MAP) 81/54 (63) 81/50 (60) 81/50 Pulse Ox 97 94 O2 Delivery Room Air Room Air 05/14/22 05/14/22 05/15/22 05/15/22 23:00 23:00 00:00 00:00 Pulse 101 101 95 Resp 21 21 21 B/P (MAP) 95/57 (70) 95/57 (70) 93/56 (68) Pulse Ox 73 90 95 O2 Delivery Room Air Room Air Room Air Room Air 05/15/22 05/15/22 05/15/22 05/15/22 00:00 00:29 01:00 01:00 Pulse 95 96 95 95 Resp 21 18 18 B/P (MAP) 93/56 (68) 99/52 (68) 99/52 (68) Pulse Ox 95 94 94 O2 Delivery Room Air Room Air Room Air 05/15/22 05/15/22 05/15/22 05/15/22 02:00 02:00 03:00 03:00 Pulse 92 92 91 91 Resp 18 18 18 18 B/P (MAP) 110/62 (78) 99/62 (74) 108/63 (78) 101/59 (73) Pulse Ox 94 94 98 98 O2 Delivery Room Air Room Air Room Air Room Air 05/15/22 05/15/22 05/15/22 05/15/22 04:00 04:00 04:00 05:00 Pulse 92 92 96 Resp 20 20 22 B/P (MAP) 107/79 (88) 107/79 (88) 107/58 (74) Pulse Ox 98 98 94 O2 Delivery Room Air Room Air Room Air Room Air 05/15/22 05/15/22 05/15/22 05/15/22 06:00 06:05 07:00 07:00 Pulse 137 135 114 116 Resp 25 29 25 B/P (MAP) 132/86 (101) 93/55 (68) Pulse Ox 100 100 100 O2 Delivery Nasal Cannula NIV Bilevel O2 Flow Rate 2.00 30.00 30.00 05/15/22 05/15/22 05/15/22 08:00 08:27 09:00 Pulse 114 117 129 Resp 22 24 B/P (MAP) 109/76 (87) 85/56 108/61 (77) Pulse Ox 98 100 O2 Delivery NIV Bilevel NIV Bilevel O2 Flow Rate 30.00 30.00 Capillary Refill : Less Than 3 Seconds Constitutional: AAO x 3, well-developed, other (Thin-appearing) HEENT: PERRL; No discharge; hearing is well preserved, oral hygience is good; No ulceration, No xanthelasmas are seen Neck: carotid pulses are 2 + bilaterally Respiratory: No accessory muscle use; other (fair air entry, diminished at the bases) Cardiovascular: regular rate-rhythm, S1 and S2, systolic murmur (soft JILLIAN at card base) Gastrointestinal: No tender; soft; No guarding, No rebound; audible bowel sounds Extremities: No clubbing, No cyanosis, No significant edema Neurologic/Psychiatric: oriented x 3, other (moves all limbs ) Skin: No rash, No ulcerations Data Review Labs Laboratory Tests 05/14/22 14:29: Lactic Acid Level 2.51*H, Troponin I 0.039H 05/14/22 16:40: Lactic Acid Level 1.37 05/15/22 04:22: Sodium Level 139, Potassium Level 2.9L, Chloride Level 109H, Carbon Dioxide Level 15L, Anion Gap 15H, Blood Urea Nitrogen 21H, Creatinine 1.47H, Estimat Glomerular Filtration Rate 50, BUN/Creatinine Ratio 14, Glucose Level 97, Calcium Level 7.4L, Corrected Calcium 8.3L, Phosphorus Level 2.8, Magnesium Level 1.2L, Total Bilirubin 0.9, Aspartate Amino Transf (AST/SGOT) 51H, Alanine Aminotransferase (ALT/SGPT) 20, Alkaline Phosphatase 60, Total Protein 5.5L, Albumin 2.9L 05/15/22 04:43: White Blood Count 131.4*H, Red Blood Count 2.26L, Hemoglobin 6.5*L, Hematocrit 22L, Mean Corpuscular Volume 97, Mean Corpuscular Hemoglobin 29, Mean Corpuscular Hemoglobin Concent 30L, Red Cell Distribution Width 21.2H, Platelet Count 24*L, Mean Platelet Volume 11.9, Immature Granulocyte % (Auto) 22, Neutrophils (%) (Auto) 27L, Lymphocytes (%) (Auto) 22, Monocytes (%) (Auto) 28H, Eosinophils (%) (Auto) 0, Basophils (%) (Auto) 1, Neutrophils # (Auto) 35.9H, Lymphocytes # (Auto) 28.6H, Monocytes # (Auto) 36.7H, Eosinophils # (Auto) 0.4H, Basophils # (Auto) 0.8H, Immature Granulocyte # (Auto) 29.0H, Neutrophils % (Manual) 30, Lymphocytes % (Manual) 5, Monocytes % (Manual) 41, Promonocyte % 9, Metamyelocytes % 9, Band Neutrophils 6, Nucleated Red Blood Cells 3, Percent Immature Platelet Fraction 12.9H, Hypochromasia MODERATE, Poikilocytosis MODERATE, Anisocytosis MARKED, Helmet Cells SLIGHT, Ray Cells SLIGHT, E lliptocytes SLIGHT 05/15/22 05:58: Blood Gas Puncture Site RT RADIAL, Blood Gas Patient Temperature 36.9, Arterial Blood pH 7.04*L, Arterial Blood Partial Pressure CO2 31L, Arterial Blood Partial Pressure O2 102H, Arterial Blood HCO3 8*L, Arterial Blood Total CO2 9.0*L, Art erial Blood Oxygen Saturation 94, Arterial Blood Base Excess -20.4L, Anupam Test YES-POS, Blood Gas Ventilator Setting NO, Blood Gas Inspired Oxygen 30% BIPAP Laboratory Tests 05/15/22 04:22 05/15/22 04:43 A/P-Cardiology Assessment/Admission Diagnosis 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 a-fib with RVR - first diagnosed on EKG of 02-12-2021 from [facility] [place] - converted spontaneously to SR with controlled rate - Reports rash on Eliquis; was supposed to change to Xarelto but has not yet. - Anticoag currently seems contraindicated due to marked thrombocytopenia. Platelet count 41K on 03/17/21 and 49K on 04/09/21 - MPI of 02/13/21: no ischemia or infarction, LVEF normal - Echo of 02/12/21: LVEF 60-65%, mod MAC, grade 1 heard dysfunction, PASP 35-40 mmHg - Holter 01-28-22: NSR with avg heart rate 91 bpm, one 3-beat run of SVT, no VT, no significant ace H/o chronic L flank pain of undetermined etiology H/o mesenteric/celiac artery intervention - by Dr. Queen of [facility] in or around 2018 - CT abd with contrast on 03/13/21 showed extensive atherosclerosis, nonaneurysma l, without findings of end organ ischemia. He has since seen Dr Queen (03/17/21) Reports h/o bilat carotid arterial dz -which he follows with [facility] COPD - seen on CXR of 02-12-21 Tobaccoism 1 PPD - stopped in December 2021 H/O hiatal hernia Discussion and Recomendations * Appears critically ill * We recommend beta-augustin when bp expected to tolerate such meds * Not suitable for anticoag (severe thrombocytopenia and anemia) * Consider transfer to tertiary care [facility] if Heme/Onc consult not available at this hosp EMMY BRYANT MD FACP FAC CCDS May 15, 2022 10:20
[2022-05-15] MEDS: RT-ALBUTEROL/IPRATROPIUM 3 ML (DUONEB) VIAL INH SCH ×3 (10:33→19:36)
[2022-05-15] MEDS: DexMEDEtomidine 250 ML DRIP 250 ML IV SCH ×2 (10:56→19:48)
[2022-05-15] MEDS: methylPREDNISolone 40 MG/ML (Solu-MEDROL) VIAL IV SCH ×2 (11:34→18:50)
--- NOTE | 2022-05-15 12:13 | Tele-ICU Progress Note ---
Subjective Date Seen by a Provider: May 15, 2022 Time Seen by a Provider: 12:13 Subjective/Events-last exam (Tele-ICU Physician , Progress Note ) Available chart/ vitals / labs / Images reviewed Video assessment done using teleICU camera, rest of exam as per RN Discussed with RN Events overnight : Afebrile hemodynamically stable Respiratory - bipap I/O = Drips: precedex 0.8 Pressors- no Consultants: cards , onc Hospital course: (05/14) 71yM Seen at [place] ED and started tx PNA. Admit for Severe sepsis, PNa - BIPAP 14/6- fio2 30% rr 18 ( sp 19 ) MV 24 L TV 1300ml A/P Acute resp failure. presumed AECOPD - - BIPAP 14/6- fio2 30% rr 18 ( sp 19 ) MV 24 L TV 1300ml -cont steroid nebs -cont Cefepime -concerns for fluid overload, but also concerned that diuresis might further increase blood viscocity -bicarb gtt 150 meq@150 cc/hr - folloq abg - patient is "ok" for ux research associate term intubation Shock- etiology probably multifactorial - on levo AECOPD - cont nrbs , steroids 40 q 6 WBC increased from 88 to 136. - onc consult, may need treatment. -?MDS may have progressed to leukemia. ANEMIA, Thrombocytopenia in face of MDS -No acute bleeding -transfusion 2 u planned today Chest pain - fentanyl prn - cards consulted -ECHO pending Anxiety - precedex Lines : port (Central Line Necessity Reviewed) Ricks: + OG: Nutrition: NPO Analgesia: Anxiety/ delirium precedex VTE Prophylaxis: PLT 20s Stress Ulcer Prophylaxis: PPI Plans in collaboration with bedside consultants and IM MDs. Discussed with RN to reach out if any questions or concerns A total of 33 minutes of critical care time was devoted to this patient today, required to treat and/or prevent further deterioration of critical care condition ( as above ) . I am remotely monitoring this patient from another state. I am unable to do bedside exam, and history/physical and peritinent information is taken from other notes in the computer and bedside staff. I cannot take responsibility for the accuracy of this information. Sepsis Event Evaluation Height, Weight, BMI Height: 5'7.00" Weight: 125lbs. 0.0oz. 56.465794dw; 19.48 BMI Method: Focused Exam Lactate Level 05/14/22 04:43: Lactic Acid Level 1.86 05/14/22 14:29: Lactic Acid Level 2.51*H 05/14/22 16:40: Lactic Acid Level 1.37 Exam Exam Patient acknowledged, consented, and participated in this virtual visit which was conducted using real time audio/video Vital Signs Date Time Temp Pulse Resp B/P (MAP) Pulse Ox O2 Delivery O2 Flow Rate FiO2 05/15/22 12:00 129 28 105/86 (92) 100 NIV Bilevel 30.00 05/15/22 11:57 35.1 126 26 104/56 (72) 96 NIV Bilevel 30.00 05/15/22 11:44 37.0 123 23 113/77 100 NIV Bilevel 30 05/15/22 11:29 37.0 123 29 97/31 100 NIV Bilevel 30 05/15/22 11:02 130 104/36 05/15/22 11:00 135 27 81/53 (62) 100 NIV Bilevel 30.00 05/15/22 10:57 137 81/53 05/15/22 10:56 135 91/53 05/15/22 10:39 118 30 100 30.00 05/15/22 10:00 112 18 93/57 (69) 100 NIV Bilevel 30.00 05/15/22 09:00 129 24 108/61 (77) 100 NIV Bilevel 30.00 05/15/22 08:27 117 85/56 05/15/22 08:00 114 22 109/76 (87) 98 NIV Bilevel 30.00 05/15/22 07:00 116 05/15/22 07:00 114 25 93/55 (68) 100 NIV Bilevel 30.00 05/15/22 06:05 135 29 100 30.00 05/15/22 06:00 137 25 132/86 (101) 100 Nasal Cannula 2.00 05/15/22 05:00 96 22 107/58 (74) 94 Room Air 05/15/22 04:00 92 20 107/79 (88) 98 Room Air 05/15/22 04:00 Room Air 05/15/22 04:00 92 20 107/79 (88) 98 Room Air 05/15/22 03:00 91 18 101/59 (73) 98 Room Air 05/15/22 03:00 91 18 108/63 (78) 98 Room Air 05/15/22 02:00 92 18 99/62 (74) 94 Room Air 05/15/22 02:00 92 18 110/62 (78) 94 Room Air 05/15/22 01:00 95 18 99/52 (68) 94 Room Air 05/15/22 01:00 95 18 99/52 (68) 94 Room Air 05/15/22 00:29 96 05/15/22 00:00 95 21 93/56 (68) 95 Room Air 05/15/22 00:00 Room Air 05/15/22 00:00 95 21 93/56 (68) 95 Room Air 05/14/22 23:00 101 21 95/57 (70) 90 Room Air 05/14/22 23:00 101 21 95/57 (70) 73 Room Air 05/14/22 22:59 96 81/50 05/14/22 22:58 100 05/14/22 22:50 100 18 81/50 (60) 94 Room Air 05/14/22 22:19 101 27 81/54 (63) 97 Room Air 05/14/22 22:00 92 22 69/45 (53) 95 Room Air 05/14/22 21:36 96 28 66/44 (51) 95 Room Air 05/14/22 21:00 93 18 69/47 (54) 94 Room Air 05/14/22 20:39 87 18 64/42 (49) 93 Room Air 05/14/22 20:38 93 16 69/45 (53) 93 Room Air 05/14/22 20:00 Room Air 05/14/22 19:01 104 05/14/22 19:00 103 15 91/44 (60) 98 Room Air 05/14/22 18:00 37.0 105 15 96/44 (61) 92 Room Air 05/14/22 17:30 37.8 108 16 98/48 (65) 92 05/14/22 17:00 38.6 112 19 99/44 (62) Room Air 05/14/22 16:45 38.3 113 20 103/49 (67) 92 Room Air 05/14/22 16:30 38.6 112 18 100/51 (67) Room Air 05/14/22 16:15 38.7 115 19 98/53 (68) 92 Room Air 05/14/22 16:00 38.5 116 16 103/57 (72) 93 Room Air 05/14/22 16:00 Room Air 05/14/22 16:00 38.5 116 16 103/57 (72) 93 05/14/22 15:45 38.3 118 18 101/62 (75) 94 Room Air 05/14/22 15:30 38.4 116 16 106/59 (75) 94 Room Air 05/14/22 15:15 38.8 115 17 99/54 (69) 96 Room Air 05/14/22 13:56 95 Room Air 0.00 05/14/22 13:15 104 I & O 05/15/22 07:00 Intake Total 100 ml Output Total 150 ml Balance -50 ml Height & Weight Height: 5'7.00" Weight: 125lbs. 0.0oz. 56.416860ff; 19.48 BMI Method: General Appearance: Anxious, Moderate Distress (appears uncomfortable), Thin HEENT: PERRL/EOMI, Moist Mucous Membranes Neck: Normal Inspection, Supple Respiratory: No Accessory Muscle Use, Crackles (bases), Decreased Breath Sounds; No Wheezing Cardiovascular: No Murmur, Tachycardia Capillary Refill: Less Than 3 Seconds Gastrointestinal: normal bowel sounds, non tender Extremity: Pedal Edema Neurologic/Psychiatric: Alert, Oriented x3 Skin: Normal Color, Warm/Dry Results Lab Laboratory Tests 05/15/22 04:22 05/15/22 04:43 Assessment/Plan Assessment/Plan 1 YASMINE MARCELO MD May 15, 2022 12:13
[2022-05-15] MEDS ORDERED: morphine INJ 10 MG/ML 1ML (SYR OR VIAL) IVP PRN (12:30)
[2022-05-15] MEDS ORDERED: morphine INJ 4 MG/ML 1 ML (VIAL/SYRINGE) ONE (12:33)
--- NOTE | 2022-05-15 12:46 | CONSULTATION REPORT ---
DATE OF SERVICE: 05/15/2022 The patient is admitted to ICU bed #7. PHYSICIAN REQUESTING CONSULTATION: Melina Knight. IMPRESSION: 1. A 71-year-old male with MDS/MPN overlap syndrome diagnosed in 02/2021. 2. Admitted to the hospital with bilateral pneumonia and leukocytosis. 3. Anemia and thrombocytopenia due to the overlap syndrome. RECOMMENDATIONS: 1. I have reviewed the peripheral smear today and this is consistent with a leukemoid reaction rather than an acute leukemia. 2. Continued treatment of bilateral pneumonia aggressively with broad-spectrum antibiotics and antifungals as needed. 3. Transfusion support with PRBCs and platelets. Maintain hemoglobin more than or equal to 8 grams per deciliter and platelets more than 10,000 if no bleeding and more than 50,000 with active bleeding. 4. Discussed DNR status with the patient and his family. The patient has been a DNR in the past, but wanted to proceed with intubation if necessary during the acute hospitalization. 5. We will follow the patient with you. BRIEF HISTORY: The patient is a 71-year-old male, who was diagnosed with the myelodysplastic syndrome/myeloproliferative disorder, overlap syndrome in 02/2021. He presented to the [facility] emergency room with leukocytosis with white count close to 90,000, anemia and thrombocytopenia and was emergently transferred to [facility]. A bone marrow aspiration and biopsy confirmed the diagnosis of the overlap syndrome. He did have pneumonia, which was treated and his white count improved. He was started on palliative chemotherapy with azacitidine and has completed four courses. During the past year, he was admitted once for a perirectal abscess requiring drainage and antibiotic therapy and recovered without problem. He has not needed platelet transfusion except at the time of diagnosis, but he has required packed red blood cell transfusion intermittently. The patient presented again to the [facility] emergency room with a fever and left-sided pleuritic chest pain. He was found to have pneumonia, leukocytosis and was transferred to [facility] for management. He was found to be hypoxic and having difficulty breathing and admitted to ICU overnight. His white count was found to be significantly elevated in the 130,000 range. Hematology consult was requested for concurrent management. PAST MEDICAL HISTORY: The overlap syndrome diagnosed last year. Prior to this, he had gastroesophageal reflux, diverticulosis, chronic constipation, and abdominal hernia. PAST SURGICAL HISTORY: Include an appendectomy, cholecystectomy, atrial fibrillation, and drainage of perirectal abscess. SOCIAL HISTORY: The patient is and lives near [place], [place]. He has a son, who lives close by. He is retired. He has previous history of tobacco use and has COPD. No significant alcohol or recreational drug use. FAMILY HISTORY: Unremarkable with no major malignancies in the family that the patient knows of. REVIEW OF SYSTEMS: Significant for fatigue, dyspnea on exertion, no orthopnea or PND. Left-sided pleuritic chest pain for the last week. No diarrhea, hematochezia or melena, but has tendency for constipation. No tingling, numbness or weakness of the extremities. No obvious bleeding, but has tendency to bruise easy. PHYSICAL EXAMINATION: GENERAL: Today showed an elderly male, thin appearing, awake and oriented, in mild respiratory distress. HEENT: Normocephalic with male pattern baldness, extraocular muscles intact, conjunctivae pale, and oral mucosa moist. NECK: Supple, with no JVD. No cervical, supraclavicular or axillary lymphadenopathy palpable. CHEST: Symmetrical with a port. LUNGS: With diminished breath sounds bilaterally with a few rhonchi in the left upper lobe. No wheezes heard. CARDIOVASCULAR: Regular in rate and rhythm and borderline tachycardic. No murmurs or gallops heard. ABDOMEN: Soft and nontender with no hepatosplenomegaly or other masses palpable. EXTREMITIES: Showed no edema. NEUROLOGIC: Showed no focal motor deficits. LABORATORY DATA: CBC done today morning showed a white count of 131.4, hemoglobin 6.5, platelet count 24,000 with neutrophil count 35.9, lymphocyte count 28.6, and monocyte count 36.7. Chemistry panel showed potassium of 2.9, BUN was 21, and creatinine 1.47 with a GFR of 50 mL per minute. Lactic acid was slightly elevated yesterday afternoon at 2.51, but was 1.37 liters. Liver function studies were normal except AST of 51 and albumin level of 2.9. ABG showed pH of 7.04, pCO2 of 31, pO2 of 102, bicarbonate of 8, and saturation of 94%. Thank you for allowing me to participate in this patient's care. I will follow the patient with you. Job ID: [id number] DocumentID: [id number] Dictated Date: 05/15/2022 09:50:04 Electrician Journeyman Wireman Date: 05/15/2022 12:45:37 Dictated By: TREVER FARIA MD
[2022-05-15 13:18] LABS: ABG BASE EXCESS -21.6 MMOL/L (-2.5-2.5); ABG OXYGEN SATURATION 91 % (94-100); ABG PCO2 23 MMHG (35-45); ABG PO2 77 MMHG (79-93)
[2022-05-15 13:19] LABS: PATIENT TEMP 37.2; VENTILATOR NO
[2022-05-15 13:23] LABS: ABG PH 7.08 (7.37-7.43); ABG TCO2 7.1 MMOL/L (21.0-31.0)
[2022-05-15] MEDS ORDERED: CEFEPIME INJECTION 1,000 MG in NS (IVPB) 50 ML IV SCH (14:00)
[2022-05-15] MEDS ORDERED: PROPOFOL DRIP (ICU) 100 ML IV ONE (14:15)
[2022-05-15] MEDS ORDERED: SODIUM BICARB 8.4% 50 MEQ/50 ML (ABBOTT) SYR ONE (14:16)
[2022-05-15] MEDS ORDERED: ACET325T38 PO (14:21)
[2022-05-15] MEDS ORDERED: POTA10TA PO (14:21)
[2022-05-15] MEDS ORDERED: SULF-221 PO (14:21)
[2022-05-15] MEDS ORDERED: ASPI-1238 PO (14:21)
[2022-05-15] MEDS ORDERED: GUAI473L PO (14:21)
[2022-05-15] MEDS ORDERED: AZIT250T12 PO (14:21)
[2022-05-15] MEDS ORDERED: ACHD5005 PO (14:21)
[2022-05-15] MEDS ORDERED: SODIUM BICARB 8.4% 50 MEQ/50 ML (ABBOTT) SYR IV NR ×4 (14:30→17:30)
[2022-05-15] MEDS ORDERED: SIME125T PO (14:54)
--- NOTE | 2022-05-15 14:58 | Anesthesia-Procedure Note ---
Procedures/Interventions Procedure Start/Stop/Diagnosis Date of Procedure: May 15, 2022 Start Time: 14:40 Stop Time: 14:50 Intubation RSI: No 100% pre-Ox, [id number]: Yes Intubation Method: orotracheal Videoscope used: Yes Grade View: 2 Medications: Etomidate (20), Succinylcholine (100) Mask Ventilation: positive Positive End Tide CO2: Yes Breath Sounds after Intubation: bilateral-equal ETT Securred @ (cm): 23 Intubated with ease: Yes Intubation Complications: no complications Care turned over to: ICU staff Arterial Line Arterial Line Catheter: 22G Type: Radial Location: Left Procedure: prepped, draped in sterile fashion, good wave-form was obtained, patient tolerated procedure well, no immediate complications, post procedure area cleaned, post procedure dressing applied SUNI ALMANZA CRNA May 15, 2022 14:58
--- NOTE | 2022-05-15 15:19 | Diagnostic Imaging Report ---
EXAMINATION: Chest, one view. HISTORY: Tube placement. COMPARISON: 05/15/2022. FINDINGS: Heart size and pulmonary vasculature are normal. Stable diffuse interstitial opacities throughout the lungs bilaterally. A right-sided port catheter is unchanged. Interval placement of an endotracheal tube approximately 6 cm above the kyra. Interval placement of an enteric catheter with the side-hole located at the level of the diaphragm. Tip projects over the proximal stomach. The osseous structures are intact. IMPRESSION: 1. Stable diffuse interstitial opacities throughout the lungs compared to prior radiograph. 2. Endotracheal tube placement above the kyra. 3. Enteric catheter coursing below the diaphragm. Consider advancing the catheter at least 3-4 cm. Dictated by: Dictated on workstation # [id number]
[2022-05-15] MEDS ORDERED: PROPOFOL DRIP (ICU) 100 ML IV SCH ×2 (15:45→16:15)
[2022-05-15] MEDS ORDERED: ALBUMIN 25% 25 GM/100 ML 100 ML IV ONE (16:00)
--- NOTE | 2022-05-15 16:12 | Tele-ICU Progress Note ---
Progress Note hypotensive on levo , intubated , sedated with precedex 0.8 - still very retless, on second unit PRBC and bicarb gtt will add sharmaine , albumin , additional bicarb will try to overlap/change to propofol if BP allowes abg , bmp , cbc pending Focused Exam Lactate Level 05/14/22 04:43: Lactic Acid Level 1.86 05/14/22 14:29: Lactic Acid Level 2.51*H 05/14/22 16:40: Lactic Acid Level 1.37 Height, Weight, BMI Height: 5'7.00" Weight: 125lbs. 0.0oz. 56.082125bg; 19.48 BMI Method: YASMINE MARCELO MD May 15, 2022 16:12
[2022-05-15] MEDS ORDERED: PHENYLEPHRINE DRIP 250 ML IV SCH (16:15)
[2022-05-15 16:28] LABS: ABG BASE EXCESS -16.6 MMOL/L (-2.5-2.5); ABG OXYGEN SATURATION 93 % (94-100); ABG PCO2 26 MMHG (35-45); ABG PO2 71 MMHG (79-93); ABG TCO2 10.7 MMOL/L (21.0-31.0)
[2022-05-15 16:31] LABS: ALLENS TEST YES-POS; VENTILATOR YES
[2022-05-15] MEDS: NOREPINEPHRINE 8 MG/250 ML 250 ML IV SCH ×2 (16:45→17:32)
[2022-05-15 16:57] LABS: POTASSIUM 4.5 MMOL/L (3.6-5.0)
[2022-05-15 16:58] LABS: CALCIUM 7.3 MG/DL (8.5-10.1)
[2022-05-15] MEDS ORDERED: DEXTROSE 50% 50 ML (IMS) SYR ONE ×2 (17:02→18:28)
[2022-05-15 17:03] LABS: CREATININE SERUM 1.49 MG/DL (0.60-1.30)
[2022-05-15 17:05] LABS: MAGNESIUM 2.3 MG/DL (1.6-2.4)
[2022-05-15] MEDS ORDERED: AMIODARONE (Pyxis Kit Only) BOLUS 150 MG/3 ML IV ONE ×2 (17:09→17:36)
[2022-05-15] MEDS ORDERED: NS (IVPB) 100 ML ONE ×2 (17:09→17:37)
[2022-05-15] MEDS ORDERED: AMIODARONE FOR BOLUS 150 MG in NS (IVPB) 100 ML IV ONE (17:15)
[2022-05-15] MEDS ORDERED: AMIODARONE INJECTION 450 MG in NORMAL SALINE 250 ML IV SCH ×2 (17:15→17:30)
[2022-05-15] MEDS ORDERED: VASOPRESSIN INJECTION 20 UNIT in NS (IVPB) 100 ML IV SCH ×2 (17:30→18:00)
[2022-05-15] MEDS ORDERED: VASOPRESSIN (PYXIS DRIP KIT) 20 UNIT/1 ML VIAL ONE (17:39)
[2022-05-15] MEDS ORDERED: NOREPINEPHRINE 16 MG in NS (IVPB) 250 ML IV SCH (17:45)
--- NOTE | 2022-05-15 17:56 | Cardiac Procedure Note-[facility] ---
Cardiology Procedures Date of Procedure 05/15/22 DIRECT-CURRENT CARDIOVERSION INDICATION: Paroxysmal atrial fibrillation and shock. PROCEDURE: Informed verbal consent was obtained from his family at the bedside due to the emergency need for the procedure. The patient was in shock on 2 vasopressors then developed atrial fibrillation with rapid ventricular rate and worsening shock. The patient was intubated and sedated earlier today. He remained on intravenous sedation. I subsequently performed direct-current cardioversion with 1 synchronized biphasic shock at 100 J with successful conversion of atrial fibrillation to sinus tachycardia. Within about 5 minutes, the patient went back into atrial fibrillation. I then performed another direct-current cardioversion with 1 synchronized biphasic shock at 150 J with successful conversion of atrial fibrillation to sinus tachycardia. The patient was started on amiodarone infusion in between the 2 defibrillation's. IMPRESSION: 1. Status post direct-current cardioversion with 2 synchronized biphasic shocks in a stepwise fashion starting with 100 J and then 150 J was successful conversion of atrial fibrillation to sinus tachycardia with each shock. The patient was placed on intravenous amiodarone infusion in between the 2 defibrillations. His family is at the bedside and is considering making the patient comfortable at this point in time. Despite being on 3 vasopressor medications, he remains in shock, most likely septic shock. Certain portions of this document may have been dictated utilizing voice recognition technology. Inherent to this technology, typographical and grammatical errors may exist. As much as I am diligent to identify and correct these mistakes, some errors may remain in the document. KIMBERLEY COOLEY JR, MD May 15, 2022 17:56
[2022-05-15] MEDS ORDERED: NOREPINEPHRINE 16 MG in NS (IVPB) 234 ML IV SCH (18:00)
[2022-05-15] MEDS ORDERED: PHENYLEPHRINE FOR DRIPS IV SCH ×2 (18:00→18:15)
[2022-05-15] MEDS ORDERED: NS IV SCH ×2 (18:00→18:15)
[2022-05-15] MEDS ORDERED: DEXTROSE 50% 50 ML (IMS) SYR IV NR (19:00)
[2022-05-15 19:41] LABS: INR 3.6 (0.8-1.4); PROTHROMBIN TIME PATIENT 36.6 SEC (12.2-14.7)
[2022-05-15] MEDS ORDERED: DEXTROSE 10% IV SOLUTION 250 ML IV ONE (20:00)
--- NOTE | 2022-05-15 21:56 | Tele-ICU Progress Note ---
Progress Note RN called to notify lactate up to [address] Lyle-- refractory septic shock on multiple pressors, worsening severe metabolic acidosis, intubated earlier today at 1445, cardioversion earlier today at 1735 Now DNR No CBC back yet, will re-order Continues on multiple pressors, bicarb gtt, antibiotics, full vent support ABG reviewed This is 71 yo M history of MDS, WBC 88-130 with refractory shock, MSOF, profound lactic acidosis- ?abd ?refractory shock only Overall prognosis is grim with mortality expected No other new orders at this time, patient now DNR Plans in collaboration with bedside consultants and Primary MD. RN to reach out if any questions or concerns 15 min DOEING,LACEY Beebe MD May 15, 2022 21:56
[2022-05-16] MEDS ORDERED: PANTOPRAZOLE 40 MG (PROTONIX) VIAL IV SCH (09:00)
== END 2022-05-15 22:25 | disposition expired | DRG 871 ==
LOC: CSD 13:08 → ICU 22:37
PROVIDERS: ADMIT Family Medicine; ATTEND Family Medicine
PROC: 03HY32Z Insertion of Monitoring Device into Upper Artery, Percutaneous Approach (ICD-10-PCS; principal; 2022-05-15)
PROC: 5A1935Z Respiratory Ventilation, Less than 24 Consecutive Hours (ICD-10-PCS; 2022-05-15)
PROC: 0BH17EZ Insertion of Endotracheal Airway into Trachea, Via Natural or Artificial Opening (ICD-10-PCS; 2022-05-15)
PROC: 5A2204Z Restoration of Cardiac Rhythm, Single (ICD-10-PCS; 2022-05-15)
PROC: 5A09357 Assistance with Respiratory Ventilation, Less than 24 Consecutive Hours, Continuous Positive Airway Pressure (ICD-10-PCS; 2022-05-15)
DX: A41.9 Sepsis, unspecified organism (principal); J18.9 Pneumonia, unspecified organism; R65.21 Severe sepsis with septic shock; I21.A1 Myocardial infarction type 2; J96.00 Acute respiratory failure, unspecified whether with hypoxia or hypercapnia; J44.0 Chronic obstructive pulmonary disease with (acute) lower respiratory infection; E87.2 Acidosis; J44.1 Chronic obstructive pulmonary disease with (acute) exacerbation; Z66 Do not resuscitate; D46.9 Myelodysplastic syndrome, unspecified; D69.6 Thrombocytopenia, unspecified; I48.0 Paroxysmal atrial fibrillation; K57.90 Diverticulosis of intestine, part unspecified, without perforation or abscess without bleeding; K21.9 Gastro-esophageal reflux disease without esophagitis; F41.9 Anxiety disorder, unspecified; K61.39 Other ischiorectal abscess; G89.29 Other chronic pain; R10.9 Unspecified abdominal pain; F17.210 Nicotine dependence, cigarettes, uncomplicated; Z79.01 Long term (current) use of anticoagulants
CPT/HCPCS: 36415; 71045; 80048; 80053; 82805; 82947; 83605; 83735; 84100; 84478; 84484; 85007; 85027; 85384; 85610; 86850; 86900; 86901; 86920; 87040; 87070; 87081; 87205; 93005; 94002; 94640; 94660; 94799